=== PATIENT | male | born 1955 | race African-American/Black ===

== ENCOUNTER 2016-07-20 12:31 | Inpatient (IN) | payer OTHER ==
[2016-07-20 13:18] VITALS: BMI 33.2
--- NOTE | 2016-07-20 14:44 | HP ---
CIWA Score - CIWA Score Nausea/Vomitin Muscle Tremors: 3 Anxiety: 3 Agitation: 2 Paroxysmal Sweats: 2 Orientation: 0-Oriented Tacttile Disturbances: 2-Mild Itch/Numbness/Burn Auditory Disturbances: 2-Mild Harshness/Frighten Visual Disturbances: 2-Mild Sensitivity Headache: 2-Mild CIWA-Ar Total Score: 20 Admission ROS BHS - HPI Chief Complaint: i am here to stop drinking alcohol and cocaine Allergies/Adverse Reactions: Allergies Allergy/AdvReac Type Severity Reaction Status Date / Time No Known Allergies Allergy Verified 07/20/16 15:11 History of Present Illness: this 60 years old male with alcohol and cocaine dependence,withdrawal symptom, last detox 11/10/13 to 11/15/13 syncope nicotine dependence ptsd bipolar disorder htn gerd type 2 dm longest period of sobriety 3year - Ebola screening Have you traveled outside of the country in the last 21 days: No Have you had contact with anyone from an Ebola affected area: No Have you been sick,other than usual withdrawal symptoms: No Do you have a fever: No - Review of Systems Constitutional: Loss of Appetite, Malaise, Night Sweats, Changes in sleep, Weakness EENT: reports: Nose Congestion Respiratory: reports: No Symptoms reported Cardiac: reports: No Symptoms Reported GI: reports: Nausea, Vomiting, Abdominal cramping : reports: No Symptoms Reported Musculoskeletal: reports: Back Pain, Muscle Pain Integumentary: reports: Dryness Neuro: reports: Headache, Tremors Endocrine: reports: No Symptoms Reported Hematology: reports: No Symptoms Reported Psychiatric: reports: other (bipolar disorder,ptsd) Patient History - Patient Medical History Hx Anemia: No Hx Asthma: No Hx Chronic Obstructive Pulmonary Disease (COPD): No Hx Cancer: No Hx Cardiac Disorders: No Hx Congestive Heart Failure: No Hx Hypertension: Yes (Pt is non compliant with meds.) Hx Hypercholesterolemia: Yes (not taking meds) Hx Pacemaker: No HX Cerebrovascular Accident: Yes (experienced back in 2009) Hx Seizures: No Hx Dementia: No Hx Diabetes: Yes (Type II non complaint with meds.) Hx Gastrointestinal Disorders: No Hx Liver Disease: No Hx Genitourinary Disorders: No Hx Sexually Transmitted Disorders: Yes (hx of gonnorhea at age 20 yrs) Hx Renal Disease (ESRD): No Hx Thyroid Disease: No Hx Human Immunodeficiency Virus (HIV): No (negative 01/25 last) Hx Hepatitis C: No Hx Depression: Yes (on meds) Hx Suicide Attempt: No Hx Bipolar Disorder: Yes (on meds) Hx Schizophrenia: No Other Medical History: ptsd,no suicidal,no homicidal - Patient Surgical History Past Surgical History: Yes Other Surgical History: R wrist tendon repair in 1979 Anesthesia Reaction: No - PPD History Previous Implant?: Yes Documented Results: Negative w/o proof Date: 11/12/13 PPD to be Administered?: Yes - Smoking Cessation Smoking history: Current every day smoker Have you smoked in the past 12 months: Yes Aproximately how many cigarettes per day: 10 Hx Chewing Tobacco Use: No Initiated information on smoking cessation: Yes 'Breaking Loose' booklet given: 07/20/16 - Substance & Tx. History Hx Alcohol Use: Yes Hx Substance Use: Yes Substance Use Type: Alcohol, Cocaine Hx Substance Use Treatment: Yes ([facility] 11/10/13 to 11/15/13) - Substances Abused Alcohol Route: Oral Frequency: Daily Amount used: 1/2 pint of vodka/2 of 6packs 24 ozs of beer Age of first use: 18 Date of Last Use: 07/19/16 Cocaine Route: Smoking Frequency: Daily Amount used: 50$ Age of first use: 29 Date of Last Use: 07/19/16 Family Disease History - Family Disease History Family Disease History: Other: Father (,alcohol), Mother (alcohol, ) Admission Physical Exam [facility] - Vital Signs Vital Signs: Vital Signs - 24 hr 07/20/16 13:16 Temperature 96.7 F L Pulse Rate 78 Respiratory 18 Rate Blood Pressure 118/68 - Physical General Appearance: Yes: Tremorous, Irritable, Anxious HEENTM: Yes: Nasal Congestion Respiratory: Yes: Lungs Clear Neck: Yes: Within Normal Limits Breast: Yes: Within Normal Limits Cardiology: Yes: Within Normal Limits, Regular Rhythm, Regular Rate, S1, S2 Abdominal: Yes: Normal Bowel Sounds, Non Tender, Flat, Soft, Organomegaly Genitourinary: Yes: Within Normal Limits Back: Yes: Muscle Spasm Musculoskeletal: Yes: Back pain, Muscle Pain Extremities: Yes: Tremors Neurological: Yes: Within Normal Limits, black puller II-XII NML intact, Fully Oriented, Alert, Other (slurred speed,right hemiparesis old cva) Integumentary: Yes: Dry Lymphatic: Yes: Within Normal Limits - Diagnostic (1) Cocaine dependence Current Visit: No Status: Acute (2) Nicotine dependence Current Visit: No Status: Acute (3) Alcohol dependence with uncomplicated withdrawal Current Visit: Yes Status: Acute (4) CVA, old, dysarthria Current Visit: Yes Status: Acute (5) HTN (hypertension) Current Visit: Yes Status: Acute (6) GERD (gastroesophageal reflux disease) Current Visit: Yes Status: Acute (7) DM2 (diabetes mellitus, type 2) Current Visit: Yes Status: Acute (8) Bipolar disorder Current Visit: Yes Status: Acute Cleared for Admission S - Detox or Rehab S Level of Care: Medically Managed Detox Regimen/Protocol: Librium S Breath Alcohol Content Breath Alcohol Content: 0 Urine Drug Screen - Results Drug Screen Negative: No Urine Drug Screen Results: LEONOR-Cocaine, TCA-Tricyclic Antidepress
[2016-07-20] MEDS ORDERED: MAG HYDROX/AL HYDROX/SIMETH 30 ML UNIT-DOSE CUP PO PRN (15:16)
[2016-07-20] MEDS ORDERED: IBUPROFEN 400 MG TABLET (FP) PO PRN (15:16)
[2016-07-20] MEDS ORDERED: LOPERAMIDE HCL 2 MG CAPSULE PO PRN (15:16)
[2016-07-20] MEDS ORDERED: guaiFENesin/D-METHORPHAN HB 10 ML UNIT-DOSE CUPS PO PRN (15:16)
[2016-07-20] MEDS ORDERED: chlordiazePOXIDE HCL 25 MG CAPSULE PO PRN (15:16)
[2016-07-20] MEDS ORDERED: MAGNESIUM HYDROX 2400MG/30ML ORAL SUSPENSION 30 ML CUP PO PRN (15:16)
[2016-07-20] MEDS ORDERED: MENTHOL/PHENOL 1 EACH UD MM PRN (15:16)
[2016-07-20] MEDS ORDERED: hydrOXYzine PAMOATE 25 MG CAPSULE (FP) PO PRN (15:16)
[2016-07-20] MEDS ORDERED: ACETAMINOPHEN 325 MG TABLET (FP) PO PRN (15:16)
[2016-07-20] MEDS ORDERED: MAGNESIUM CITRATE 300 ML BOTTLE PO PRN (15:16)
[2016-07-20] MEDS ORDERED: P-EPHED 60MG/TRIPROLIDI 2.5MG TABLET PO PRN (15:16)
[2016-07-20] MEDS ORDERED: chlordiazePOXIDE HCL 25 MG CAPSULE PO ONE (16:15)
[2016-07-20] MEDS: chlordiazePOXIDE HCL 25 MG CAPSULE PO SCH ×2 (19:13→22:58)
[2016-07-20 19:14] LABS: URINE APPEARANCE CLEAR; URINE BILIRUBIN NEGATIVE (NEGATIVE); URINE BLOOD NEGATIVE (NEGATIVE); URINE COLOR YELLOW; URINE GLUCOSE (UA) NEGATIVE (NEGATIVE); URINE KETONE TRACE (NEGATIVE); URINE LEUK ESTERASE NEGATIVE (NEGATIVE); URINE NITRITE NEGATIVE (NEGATIVE); URINE PROTEIN NEGATIVE (NEGATIVE); URINE UROBILINOGEN NEGATIVE E.U./dl (0.2-1.0)
[2016-07-20] MEDS: NICOTINE 7 MG/24 HOURS TOPICAL PATCH TD SCH (19:14)
[2016-07-20] MEDS: metFORMIN HCL 500 MG TABLET (FP) PO SCH (22:58)
[2016-07-20] MEDS: THIAMINE HCL 100 MG TABLET (FP) PO SCH (22:58)
[2016-07-20] MEDS: METOPROLOL TARTRATE 25 MG TABLET (FP) PO SCH (22:58)
[2016-07-20] MEDS: DOCUSATE SODIUM 100 MG CAPSULE (FP) PO SCH (22:58)
[2016-07-20] MEDS: diphenhydrAMINE HCL 50 MG CAPSULE PO PRN (22:59)
[2016-07-21] MEDS: chlordiazePOXIDE HCL 25 MG CAPSULE PO SCH ×4 (06:03→22:37)
[2016-07-21] MEDS: metFORMIN HCL 500 MG TABLET (FP) PO SCH (07:41)
[2016-07-21] MEDS: PRENATAL VITAMINS W/ FOLIC ACID TABLET (FP) PO SCH (10:04)
[2016-07-21] MEDS: PANTOPRAZOLE 20 MG TABLET (FP) PO SCH (10:04)
[2016-07-21] MEDS: ASPIRIN 81 MG CHEWABLE TABLETS PO SCH (10:04)
[2016-07-21] MEDS: METOPROLOL TARTRATE 25 MG TABLET (FP) PO SCH (10:05)
[2016-07-21] MEDS: NICOTINE 7 MG/24 HOURS TOPICAL PATCH TD SCH (10:06)
[2016-07-21 10:23] LABS: MCH 32.3 pg (25.7-33.7); MCHC 33.3 g/dl (32.0-35.9); MEAN PLT VOLUME 10.9 fl (7.5-11.1); PLATELET COUNT 120 K/MM3 (134-434); RDW 12.8 % (11.9-15.9); WHITE BLOOD COUNT 4.8 K/mm3 (4.0-10.0)
[2016-07-21 10:46] LABS: ALBUMIN 3.4 g/dl (3.4-5.0)
[2016-07-21 10:49] LABS: BILIRUBIN,TOTAL 0.5 mg/dL (0.2-1.0); CALCIUM 8.7 mg/dL (8.5-10.1); CREATININE 1.8 mg/dL (0.7-1.3); TOT PROT 6.5 g/dl (6.4-8.2)
[2016-07-21 11:47] LABS: HIV 1 & 2 AB NEGATIVE; HIV 1 AGp24 NEGATIVE
--- NOTE | 2016-07-21 14:27 | PN ---
S CIWA - CIWA Score Nausea/Vomitin-No Nausea/No Vomiting Muscle Tremors: 3 Anxiety: 4-Mod. Anxious/Guarded Agitation: 4-Moderately Restless Paroxysmal Sweats: No Perspiration Orientation: 0-Oriented Tacttile Disturbances: 1-Very Mild Itch/Numbness Auditory Disturbances: 0-None Visual Disturbances: 0-None Headache: 3-Moderate CIWA-Ar Total Score: 15 BHS Progress Note (SOAP) Subjective: Sweating, anxiety, nausea Objective: 07/21/16 14:22 Last Vital Signs Temp Pulse Resp BP Pulse Ox 97 F L 78 18 96/71 07/21/16 13:30 07/21/16 13:30 07/21/16 13:30 07/21/16 13:30 Noted with hypotension Laboratory Tests 07/20/16 07/20/16 07/21/16 15:51 Unknown 06:02 WBC RBC Hgb Hct MCV MCHC RDW Plt Count MPV Sodium Potassium Chloride Carbon Dioxide Anion Gap BUN Creatinine Creat Clearance w eGFR POC Glucometer 94 151 Random Glucose Calcium Total Bilirubin AST ALT Alkaline Phosphatase Total Protein Albumin Urine Color Yellow Urine Appearance Clear Urine pH 5.0 Ur Specific [place] 1.023 Urine Protein Negative Urine Glucose (UA) Negative Urine Ketones Trace H Urine Blood Negative Urine Nitrite Negative Urine Bilirubin Negative Urine Urobilinogen Negative Ur Leukocyte Esterase Negative RPR Titer HIV 1&2 Antibody Screen HIV P24 Antigen 07/21/16 07/21/16 07/21/16 08:00 08:00 08:00 WBC 4.8 D RBC 3.85 L Hgb 12.4 D Hct 37.3 MCV 97.0 H MCHC 33.3 RDW 12.8 Plt Count 120 L D MPV 10.9 Sodium 135 L Potassium 3.8 Chloride 104 Carbon Dioxide 27 Anion Gap 4 L BUN 28 H D Creatinine 1.8 H D Creat Clearance w eGFR 38.95 POC Glucometer Random Glucose 104 D Calcium 8.7 Total Bilirubin 0.5 D AST 58 H ALT 29 D Alkaline Phosphatase 64 D Total Protein 6.5 Albumin 3.4 D Urine Color Urine Appearance Urine pH Ur Specific [place] Urine Protein Urine Glucose (UA) Urine Ketones Urine Blood Urine Nitrite Urine Bilirubin Urine Urobilinogen Ur Leukocyte Esterase RPR Titer Nonreactive HIV 1&2 Antibody Screen HIV P24 Antigen 07/21/16 08:40 WBC RBC Hgb Hct MCV MCHC RDW Plt Count MPV Sodium Potassium Chloride Carbon Dioxide Anion Gap BUN Creatinine Creat Clearance w eGFR POC Glucometer Random Glucose Calcium Total Bilirubin AST ALT Alkaline Phosphatase Total Protein Albumin Urine Color Urine Appearance Urine pH Ur Specific [place] Urine Protein Urine Glucose (UA) Urine Ketones Urine Blood Urine Nitrite Urine Bilirubin Urine Urobilinogen Ur Leukocyte Esterase RPR Titer HIV 1&2 Antibody Screen Negative HIV P24 Antigen Negative Labs noted: BUN 28, serum creatinine 1.8, serum glucose 104 Assessment: 07/21/16 14:23 Withdrawal symptoms Noted with hypotension Noted with prerenal azotemia Noted with hyperglycemia secondary to DMT2 Plan: Continue detox Hypotension: asymptomatic, encouraged to drink more water, d/c metoprolol due to continuous low blood pressure (no need to taper as patient only received two doses) Pre renal azotemia: encouraged to drink more water, repeat BMP in AM, d/c metformin and motrin due to elevated creatinine Hyperglycemia secondary to DMT2: ordered for HbA1c, change diet to diabetic diet , start sliding scale insulin novolog with coverage, d/c metformin due to elevated serum creatinine, encouraged to drink more water; consider resume metformin if warranted when renal function stable
[2016-07-21] MEDS: INSULIN SLIDING SCALE (NOVOLOG) 1 VIAL SQ SCH (17:51)
[2016-07-21] MEDS: THIAMINE HCL 100 MG TABLET (FP) PO SCH (22:37)
[2016-07-21] MEDS: DOCUSATE SODIUM 100 MG CAPSULE (FP) PO SCH (22:37)
[2016-07-21] MEDS: diphenhydrAMINE HCL 50 MG CAPSULE PO PRN (22:38)
[2016-07-22] MEDS: chlordiazePOXIDE HCL 25 MG CAPSULE PO SCH ×2 (05:53→10:26)
[2016-07-22] MEDS: INSULIN SLIDING SCALE (NOVOLOG) 1 VIAL SQ SCH ×3 (06:13→16:32)
[2016-07-22] MEDS: ASPIRIN 81 MG CHEWABLE TABLETS PO SCH (10:26)
[2016-07-22] MEDS: NICOTINE 7 MG/24 HOURS TOPICAL PATCH TD SCH (10:26)
[2016-07-22] MEDS: PANTOPRAZOLE 20 MG TABLET (FP) PO SCH (10:26)
[2016-07-22] MEDS: PRENATAL VITAMINS W/ FOLIC ACID TABLET (FP) PO SCH (10:26)
[2016-07-22 10:28] LABS: CALCIUM 8.2 mg/dL (8.5-10.1); CREATININE 1.4 mg/dL (0.7-1.3)
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
[2016-07-22] MEDS ORDERED: HALOPERIDOL 5 MG TABLET (FP) PO SCH (11:45)
--- NOTE | 2016-07-22 11:56 | PN ---
[facility] CIWA - CIWA Score Nausea/Vomitin Muscle Tremors: 3 Anxiety: 3 Agitation: 2 Paroxysmal Sweats: 1-Minimal Palms Moist Orientation: 0-Oriented Tacttile Disturbances: 1-Very Mild Itch/Numbness Auditory Disturbances: 1-Very Mild Visual Disturbances: 1-Very Mild Sensitivity Headache: 2-Mild CIWA-Ar Total Score: 17 S Progress Note (SOAP) Subjective: Alert,irritable,anxious,interrupted sleep,tremor Objective: 07/22/16 11:53 Vital Signs Temperature 96.4 F L 07/22/16 10:02 Pulse Rate 97 H 07/22/16 10:02 Respiratory Rate 18 07/22/16 10:02 Blood Pressure 118/76 07/22/16 10:02 O2 Sat by Pulse Oximetry (%) ekg nsr 75/min Laboratory Last Values WBC 4.8 K/mm3 (4.0-10.0) D 07/21/16 08:00 RBC 3.85 M/mm3 (4.00-5.60) L 07/21/16 08:00 Hgb 12.4 GM/dL (11.7-16.9) D 07/21/16 08:00 Hct 37.3 % (35.4-49) 07/21/16 08:00 MCV 97.0 fl (80-96) H 07/21/16 08:00 MCHC 33.3 g/dl (32.0-35.9) 07/21/16 08:00 RDW 12.8 % (11.9-15.9) 07/21/16 08:00 Plt Count 120 K/MM3 (134-434) L D 07/21/16 08:00 MPV 10.9 fl (7.5-11.1) 07/21/16 08:00 Sodium 140 mmol/L (136-145) 07/22/16 06:30 Potassium 4.0 mmol/L (3.5-5.1) 07/22/16 06:30 Chloride 104 mmol/L (98-107) 07/22/16 06:30 Carbon Dioxide 28 mmol/L (21-32) 07/22/16 06:30 Anion Gap 8 (8-16) 07/22/16 06:30 BUN 23 mg/dL (7-18) H 07/22/16 06:30 Creatinine 1.4 mg/dL (0.7-1.3) H D 07/22/16 06:30 Creat Clearance w eGFR 38.95 (>60) 07/21/16 08:00 POC Glucometer 102 UNITS (()) 07/22/16 11:16 Random Glucose 122 mg/dL (74-106) H 07/22/16 06:30 Hemoglobin A1c % 5.4 % (4.8-6.0) 07/22/16 06:30 Calcium 8.2 mg/dL (8.5-10.1) L 07/22/16 06:30 Total Bilirubin 0.5 mg/dL (0.2-1.0) D 07/21/16 08:00 AST 58 U/L (15-37) H 07/21/16 08:00 ALT 29 U/L (12-78) D 07/21/16 08:00 Alkaline Phosphatase 64 U/L (45-117) D 07/21/16 08:00 Total Protein 6.5 g/dl (6.4-8.2) 07/21/16 08:00 Albumin 3.4 g/dl (3.4-5.0) D 07/21/16 08:00 Urine Color Yellow 07/20/16 Unknown Urine Appearance Clear 07/20/16 Unknown Urine pH 5.0 (5.0-8.0) 07/20/16 Unknown Ur Specific [place] 1.023 (1.001-1.035) 07/20/16 Unknown Urine Protein Negative (NEGATIVE) 07/20/16 Unknown Urine Glucose (UA) Negative (NEGATIVE) 07/20/16 Unknown Urine Ketones Trace (NEGATIVE) H 07/20/16 Unknown Urine Blood Negative (NEGATIVE) 07/20/16 Unknown Urine Nitrite Negative (NEGATIVE) 07/20/16 Unknown Urine Bilirubin Negative (NEGATIVE) 07/20/16 Unknown Urine Urobilinogen Negative E.U./dl (0.2-1.0) 07/20/16 Unknown Ur Leukocyte Esterase Negative (NEGATIVE) 07/20/16 Unknown RPR Titer Nonreactive (NONREACTIVE) 07/21/16 08:00 HIV 1&2 Antibody Screen Negative 07/21/16 08:40 HIV P24 Antigen Negative 07/21/16 08:40 Assessment: 07/22/16 11:55 withdrawal symptom Plan: continue detox,encourage oral fluid,repeat cmp in am
[2016-07-22] MEDS: DIVALPROEX SODIUM 500 MG TABLET E.C. PO SCH ×2 (12:19→22:03)
[2016-07-22] MEDS: BENZTROPINE MESYLATE 1 MG TABLET (FP) PO SCH ×2 (12:19→22:03)
[2016-07-22] MEDS: chlordiazePOXIDE 5 MG CAPSULE PO SCH ×2 (17:13→22:03)
[2016-07-22] MEDS: DOCUSATE SODIUM 100 MG CAPSULE (FP) PO SCH (22:03)
[2016-07-22] MEDS: QUEtiapine FUMARATE 50 MG TABLET PO SCH (22:03)
[2016-07-22] MEDS: THIAMINE HCL 100 MG TABLET (FP) PO SCH (22:04)
[2016-07-23] MEDS: chlordiazePOXIDE 5 MG CAPSULE PO SCH ×2 (06:07→10:41)
[2016-07-23] MEDS: INSULIN SLIDING SCALE (NOVOLOG) 1 VIAL SQ SCH ×3 (06:29→16:42)
[2016-07-23] MEDS ORDERED: HALOPERIDOL 5 MG TABLET (FP) PO SCH (10:00)
--- NOTE | 2016-07-23 10:34 | PN ---
S Progress Note (SOAP) Subjective: ALERT,IRRITABLE,ANXIOUS,INTERRUPTED SLEEP,NASAL CONGESTION Objective: 07/23/16 10:33 Vital Signs Temperature 97.0 F L 07/23/16 09:39 Pulse Rate 111 H 07/23/16 09:39 Respiratory Rate 20 07/23/16 09:39 Blood Pressure 138/89 07/23/16 09:39 O2 Sat by Pulse Oximetry (%) Assessment: 07/23/16 10:33 WITHDRAWAL SYMPTOM Plan: CONTINUE DETOX,DISCHARGE IN AM
[2016-07-23] MEDS: NICOTINE 7 MG/24 HOURS TOPICAL PATCH TD SCH (10:41)
[2016-07-23] MEDS: BENZTROPINE MESYLATE 1 MG TABLET (FP) PO SCH ×2 (10:41→22:06)
[2016-07-23] MEDS: PRENATAL VITAMINS W/ FOLIC ACID TABLET (FP) PO SCH (10:41)
[2016-07-23] MEDS: PANTOPRAZOLE 20 MG TABLET (FP) PO SCH (10:41)
[2016-07-23] MEDS: ASPIRIN 81 MG CHEWABLE TABLETS PO SCH (10:41)
[2016-07-23] MEDS: DIVALPROEX SODIUM 500 MG TABLET E.C. PO SCH ×2 (10:41→22:06)
[2016-07-23 10:46] LABS: ALBUMIN 3.4 g/dl (3.4-5.0); BILIRUBIN,TOTAL 0.3 mg/dL (0.2-1.0); CALCIUM 8.4 mg/dL (8.5-10.1); CREATININE 1.5 mg/dL (0.7-1.3); TOT PROT 6.4 g/dl (6.4-8.2)
[2016-07-23] MEDS: SODIUM CHLORIDE NASAL SPRAY 44 ML BOTTLE NS SCH ×2 (11:56→22:06)
[2016-07-23] MEDS: chlordiazePOXIDE HCL 10 MG CAPSULE PO SCH ×2 (17:51→22:06)
[2016-07-23] MEDS: QUEtiapine FUMARATE 50 MG TABLET PO SCH (22:06)
[2016-07-23] MEDS: DOCUSATE SODIUM 100 MG CAPSULE (FP) PO SCH (22:06)
[2016-07-23] MEDS: THIAMINE HCL 100 MG TABLET (FP) PO SCH (22:07)
[2016-07-24] MEDS: chlordiazePOXIDE HCL 10 MG CAPSULE PO SCH (05:53)
[2016-07-24 06:31] VITALS: BP 126/66; PULSE 105; TEMP 98.6
[2016-07-24] MEDS: INSULIN SLIDING SCALE (NOVOLOG) 1 VIAL SQ SCH (06:39)
--- NOTE | 2016-07-24 08:26 | PN ---
S Progress Note (SOAP) Subjective: ALERT,NO COMPLAINT Objective: 07/24/16 08:24 Vital Signs Temperature 98.6 F 07/24/16 06:30 Pulse Rate 105 H 07/24/16 06:30 Respiratory Rate 16 07/24/16 06:30 Blood Pressure 126/66 07/24/16 06:30 O2 Sat by Pulse Oximetry (%) DETOX COMPLETED,NO WITHDRAWAL SYMPTOM Assessment: 07/24/16 08:25 NO WITHDRAWAL SYMPTOM Plan: DISCHARGE TODAY,FOLLOW UP WITH AFTER CARE PROGRAM ARRANGEMENT
--- NOTE | 2016-07-24 08:30 | DS ---
[facility] Detox Discharge Summary Admission Date: 07/20/16 Discharge Date: 07/24/16 - History Present History: Alcohol Dependence, Cocaine Dependence Additional Comments: FOLLOW UP WITH AFTER CARE PROGRAM ARRANGEMENT AND PMD FOR MEDICAL PROBLEMS PATIENT HAS ALL MEDICATIONS AT HOME Pertinent Past History: OLD CVA HYPERTENSION GERD TYPE 2 DM BIPOLAR DISORDER - Physical Exam Results Vital Signs: Vital Signs Temperature 98.6 F 07/24/16 06:30 Pulse Rate 105 H 07/24/16 06:30 Respiratory Rate 16 07/24/16 06:30 Blood Pressure 126/66 07/24/16 06:30 O2 Sat by Pulse Oximetry (%) Pertinent Admission Physical Exam Findings: WITHDRAWAL SYMPTOM - Treatment Hospital Course: Detox Protocol Followed, Detoxed Safely, Responded well, Discharged Condition Good Patient has Accepted a Rehab Referral to: [facility] - Medication Discharge Medications: Ambulatory Orders Aspirin [ASA -] 81 mg PO DAILY #30 tab.chew 11/15/13 Metformin HCl [Glucophage -] 500 mg PO BID #60 tablet 11/15/13 Benztropine Mesylate [Cogentin -] 1 mg PO BID 07/20/16 Divalproex Sodium 500 mg PO BID 07/20/16 Docusate Sodium [Colace -] 100 mg PO HS 07/20/16 Folic Acid 1 mg PO DAILY 07/20/16 Haloperidol [Haldol -] 5 mg PO BID 07/20/16 Metoprolol Tartrate [Lopressor -] 25 mg PO BID 07/20/16 Multivit with Iron-Minerals [Compete] 1 each PO DAILY 07/20/16 Nicotine Patch [Nicoderm Patch -] 1 patch TD DAILY 07/20/16 Pantoprazole Sodium [Protonix -] 20 mg PO DAILY 07/20/16 Quetiapine Fumarate [Seroquel -] 50 mg PO BID 07/20/16 Thiamine HCl [Vitamin B-1] 100 mg PO DAILY 07/20/16 Benztropine Mesylate [Cogentin -] 1 mg PO DAILY #30 tab 07/23/16 Divalproex [Depakote -] 500 mg PO BID #60 tablet.ec 07/23/16 Haloperidol [Haldol -] 5 mg PO DAILY #30 tablet 07/23/16 Quetiapine Fumarate [Seroquel -] 50 mg PO HS #30 tablet 07/23/16 - Diagnosis (1) Cocaine dependence Current Visit: Yes Status: Acute (2) Nicotine dependence Current Visit: No Status: Acute (3) Alcohol dependence with uncomplicated withdrawal Current Visit: Yes Status: Acute (4) CVA, old, dysarthria Current Visit: Yes Status: Acute (5) HTN (hypertension) Current Visit: Yes Status: Chronic (6) GERD (gastroesophageal reflux disease) Current Visit: Yes Status: Chronic (7) DM2 (diabetes mellitus, type 2) Current Visit: Yes Status: Chronic (8) Bipolar disorder Current Visit: Yes Status: Chronic - AMA Did Patient Leave Against Medical Advice: No
--- NOTE | 2016-07-24 10:27 | EKG ---
Test Reason : Blood Pressure : / mmHG Vent. Rate : 075 BPM Atrial Rate : 075 BPM P-R Int : 162 ms QRS Dur : 076 ms QT Int : 392 ms P-R-T Axes : 066 030 019 degrees QTc Int : 437 ms NORMAL SINUS RHYTHM NORMAL ECG NO PREVIOUS ECGS AVAILABLE Confirmed by KEVIN SANTA MD ([id number]) on 07/24/2016 10:26:42 AM Referred By: Confirmed By:KEVIN SANTA MD
== END 2016-07-24 08:55 | disposition home or self-care (01) | DRG 774 ==
LOC: YASAS 12:31 → Y3N 16:20
PROVIDERS: ADMIT Internal Medicine; ATTEND Internal Medicine
PROC: HZ2ZZZZ Detoxification Services for Substance Abuse Treatment (ICD-10-PCS; principal; 2016-07-20)
DX: F10.230 Alcohol dependence with withdrawal, uncomplicated (principal); F14.20 Cocaine dependence, uncomplicated; F17.210 Nicotine dependence, cigarettes, uncomplicated; F31.9 Bipolar disorder, unspecified; F19.24 Other psychoactive substance dependence with psychoactive substance-induced mood disorder; F43.10 Post-traumatic stress disorder, unspecified; I10 Essential (primary) hypertension; I95.9 Hypotension, unspecified; K21.9 Gastro-esophageal reflux disease without esophagitis; E11.65 Type 2 diabetes mellitus with hyperglycemia; E78.00 Pure hypercholesterolemia, unspecified; R79.89 Other specified abnormal findings of blood chemistry; G45.8 Other transient cerebral ischemic attacks and related syndromes; Z86.73 Personal history of transient ischemic attack (TIA), and cerebral infarction without residual deficits; Z87.438 Personal history of other diseases of male genital organs; Z86.79 Personal history of other diseases of the circulatory system; Z91.14 Patient's other noncompliance with medication regimen
CPT/HCPCS: 36415; 80048; 80053; 80164; 81003; 83036; 85027; 86593; 87389; 93005; 93010

== ENCOUNTER 2019-02-07 10:36 | Inpatient (IN) | payer OTHER ==
[2019-02-07 11:19] VITALS: BMI 27.9
--- NOTE | 2019-02-07 12:48 | HP ---
"CIWA Score Nausea/Vomitin Muscle Tremors: 4-Moderate,w/Arms Extend Anxiety: 4-Mod. Anxious/Guarded Agitation: 4-Moderately Restless Paroxysmal Sweats: 2 Orientation: 2-Disoriented Date<2 days Tacttile Disturbances: 1-Very Mild Itch/Numbness Auditory Disturbances: 1-Very Mild Visual Disturbances: 2-Mild Sensitivity Headache: 3-Moderate CIWA-Ar Total Score: 25 - Admission Criteria OASAS Guidelines: Admission for Medically Managed Detox: Requires at least one of the followin. CIWA greater than 12 2. Seizures within the past 24 hours 3. Delirium tremens within the past 24 hours 4. Hallucinations within the past 24 hours 5. Acute intervention needed for co occurring medical disorder 6. Acute intervention needed for co occurring psychiatric disorder 7. Severe withdrawal that cannot be handled at a lower level of care (continued vomiting, continued diarrhea, abnormal vital signs) requiring intravenous medication and/or fluids 8. Admission ROS S - HPI Allergies/Adverse Reactions: Allergies Allergy/AdvReac Type Severity Reaction Status Date / Time No Known Allergies Allergy Verified 02/07/19 11:06 History of Present Illness: pt here requesting detox from etoh use , reports 5 pints and 24-oz x 6-pk , 3 --4 /day , starts drinking in the mornings , + blackouts, + tremors , denies seizures , states he relapsed 1 month ago after the of his son , latest use this morning, current symptoms as above . cocaine : 80-90 $/day tobacco : 1/2 ppd benzo-denies pmhx : dm, htn , gerd , pshx : r wrist tendon repair age 20 PSych : ptsd This report was requested by: Alayna Owen | Reference #: [id number] Others' Prescriptions Patient Name: Ángel Moran Date: 1955 Address: [address] [place] [address] Sex: Male Rx Written Rx Dispensed Drug Quantity Days Supply Prescriber Name 08/19/2018 08/19/2018 chlordiazepoxide 10 mg capsule 20 2 LaksPorter MD 08/14/2018 08/14/2018 chlordiazepoxide 10 mg capsule 45 3 Laks, Porter GAN Exam Limitations: Clinical Condition - Ebola screening Have you traveled outside of the country in the last 21 days: No (N) Have you had contact with anyone from an Ebola affected area: No Do you have a fever: No - Review of Systems Constitutional: See HPI EENT: reports: No Symptoms Reported Respiratory: reports: No Symptoms reported Cardiac: reports: No Symptoms Reported GI: reports: See HPI : reports: No Symptoms Reported Musculoskeletal: reports: No Symptoms Reported Integumentary: reports: No Symptoms Reported Neuro: reports: See HPI Endocrine: reports: See HPI Psychiatric: reports: Orientated x3, Agitated, Anxious Patient History - Patient Medical History Hx Anemia: No Hx Asthma: No Hx Chronic Obstructive Pulmonary Disease (COPD): No Hx Cancer: No Hx Cardiac Disorders: No Hx Congestive Heart Failure: No Hx Hypertension: Yes (Pt is non compliant with meds.) Hx Hypercholesterolemia: Yes (not taking meds) Hx Pacemaker: No HX Cerebrovascular Accident: Yes (experienced back in 2009) Hx Seizures: No Hx Dementia: No Hx Diabetes: Yes (Type II non complaint with meds.) Hx Gastrointestinal Disorders: No Hx Liver Disease: No Hx Genitourinary Disorders: No Hx Sexually Transmitted Disorders: Yes (hx of gonnorhea at age 20 yrs) Hx Renal Disease (ESRD): No Hx Thyroid Disease: No Hx Human Immunodeficiency Virus (HIV): No (negative 01/25 last) Hx Hepatitis C: No Hx Depression: Yes (on meds) Hx Suicide Attempt: No Hx Bipolar Disorder: Yes (on meds) Hx Schizophrenia: No - Patient Surgical History Past Surgical History: Yes Other Surgical History: R wrist tendon repair in 1979 Anesthesia Reaction: No - PPD History Date: 07/22/16 - Smoking Cessation Smoking history: Current every day smoker Have you smoked in the past 12 months: Yes Aproximately how many cigarettes per day: 10 Hx Chewing Tobacco Use: No Initiated information on smoking cessation: No - Substances abused Alcohol Substance route: Oral Frequency: Daily Amount used: 4-5 pints of vodka, 24 ozs beer 2-6 packs. Age of first use: 21 Date of last use: 02/07/19 Cocaine Substance route: Smoking Frequency: Daily Amount used: $80 Age of first use: 29 Date of last use: 02/07/19 Family Disease History - Family Disease History Family Disease History: Other: Father (,alcohol), Mother (alcohol, ) Admission Physical Exam BHS - Vital Signs Vital Signs: Vital Signs - 24 hr 02/07/19 10:58 Temperature 97.2 F L Pulse Rate 92 H Respiratory 18 Rate Blood Pressure 139/83 - Physical General Appearance: Yes: Mild Distress, Tremorous, Anxious HEENTM: Yes: EOMI, Hearing grossly Normal, Normocephalic, Normal Voice Respiratory: Yes: Lungs Clear, Normal Breath Sounds, No Respiratory Distress, No Accessory Muscle Use Neck: Yes: No masses,lesions,Nodules, Trachea in good position Cardiology: Yes: Regular Rhythm, Regular Rate, S1, S2, Tachycardia Abdominal: Yes: Non Tender, Soft Back: Yes: Normal Inspection Musculoskeletal: Yes: Gait Steady Extremities: Yes: Normal Range of Motion, Non-Tender Neurological: Yes: Fully Oriented, Alert, Motor Strength 5/5 Integumentary: Yes: Warm - Diagnostic (1) Alcohol dependence Current Visit: Yes Status: Acute Qualifiers: Substance use status: uncomplicated Qualified Code(s): F10.20 - Alcohol dependence, uncomplicated (2) Cocaine dependence Current Visit: Yes Status: Chronic Qualifiers: Substance use status: uncomplicated Qualified Code(s): F14.20 - Cocaine dependence, uncomplicated (3) Nicotine dependence Current Visit: Yes Status: Chronic Qualifiers: Nicotine product type: cigarettes Breathalyzer - Breathalyzer Breathalyzer: 0.008 Urine Drug Screen - Test Device Lot number: [id number] Expiration date: 11/10/20 - Control Is test valid?: Yes - Results Drug screen NEGATIVE: No Urine drug screen results: LEONOR-Cocaine, BZO-Benzodiazepines Inpatient Rehab Admission - Rehab Decision to Admit Inpatient rehab admission?: No"
[2019-02-07] MEDS ORDERED: ACETAMINOPHEN 325 MG TABLET (FP) PO PRN ×2 (12:51)
[2019-02-07] MEDS ORDERED: MAGNESIUM CITRATE 300 ML BOTTLE PO PRN (12:51)
[2019-02-07] MEDS ORDERED: MENTHOL/PHENOL 1 EACH UD MM PRN (12:51)
[2019-02-07] MEDS ORDERED: IBUPROFEN 400 MG TABLET (FP) PO PRN (12:51)
[2019-02-07] MEDS ORDERED: MAG HYDROX/AL HYDROX/SIMETH 30 ML UNIT-DOSE CUP PO PRN (12:51)
[2019-02-07] MEDS ORDERED: hydrOXYzine PAMOATE 25 MG CAPSULE (FP) PO PRN (12:51)
[2019-02-07] MEDS ORDERED: NICOTINE POLACRILEX 2 MG GUM BUC PRN (12:51)
[2019-02-07] MEDS ORDERED: BISMUTH SUBSALICYLATE 524 MG/30 ML UD PO PRN (12:51)
[2019-02-07] MEDS ORDERED: MAGNESIUM HYDROX 2400MG/30ML ORAL SUSPENSION 30 ML CUP PO PRN (12:51)
[2019-02-07] MEDS ORDERED: chlordiazePOXIDE HCL 10 MG CAPSULE PO PRN (12:57)
[2019-02-07] MEDS: ASPIRIN 81 MG CHEWABLE TABLETS PO SCH (14:33)
[2019-02-07] MEDS: chlordiazePOXIDE HCL 25 MG CAPSULE PO SCH ×2 (14:33→22:14)
[2019-02-07] MEDS: metFORMIN HCL 500 MG TABLET (FP) PO SCH (17:07)
[2019-02-07] MEDS: INSULIN SLIDING SCALE (NOVOLOG) 1 VIAL SQ SCH (18:08)
[2019-02-07] MEDS: THIAMINE HCL 100 MG TABLET (FP) PO SCH (22:14)
[2019-02-07] MEDS: MELATONIN 5 MG TABLETS PO PRN (22:14)
[2019-02-07] MEDS: METOPROLOL TARTRATE 25 MG TABLET (FP) PO SCH (22:14)
[2019-02-08] MEDS: chlordiazePOXIDE HCL 25 MG CAPSULE PO SCH ×3 (06:05→22:04)
[2019-02-08] MEDS: metFORMIN HCL 500 MG TABLET (FP) PO SCH ×2 (06:05→17:17)
[2019-02-08] MEDS: INSULIN SLIDING SCALE (NOVOLOG) 1 VIAL SQ SCH ×2 (06:28→17:12)
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
[2019-02-08] MEDS: PRENATAL VITAMINS W/ FOLIC ACID TABLET (FP) PO SCH (10:11)
[2019-02-08] MEDS: ASPIRIN 81 MG CHEWABLE TABLETS PO SCH (10:11)
[2019-02-08] MEDS: PANTOPRAZOLE 20 MG TABLET (FP) PO SCH (10:11)
[2019-02-08] MEDS ORDERED: NICOTINE POLACRILEX 4 MG GUM BUC PRN (10:35)
[2019-02-08 12:18] LABS: HEMATOCRIT 37.9 % (35.4-49); HEMOGLOBIN 12.7 GM/dL (11.7-16.9); MCHC 33.6 g/dl (32.0-35.9); MEAN CELL VOLUME 98.1 fl (80-96); MEAN PLT VOLUME 10.8 fl (7.5-11.1); PLATELET COUNT 121 K/MM3 (134-434); RBC 3.87 M/mm3 (4.00-5.60); RDW 13.4 % (11.9-15.9); WHITE BLOOD COUNT 5.5 K/mm3 (4.0-10.0)
[2019-02-08] MEDS: METOPROLOL TARTRATE 25 MG TABLET (FP) PO SCH ×2 (12:29→22:04)
[2019-02-08] MEDS: NICOTINE 21 MG/24 HOURS TOPICAL PATCH TD SCH (12:29)
[2019-02-08 13:06] LABS: ALBUMIN 3.3 g/dl (3.4-5.0); BLOOD UREA NITROGEN 24.3 mg/dL (7-18); CALCIUM 8.5 mg/dL (8.5-10.1); CREATININE 1.1 mg/dL (0.55-1.3); POTASSIUM 3.8 mmol/L (3.5-5.1); TOT PROT 6.4 g/dl (6.4-8.2)
[2019-02-08] MEDS ORDERED: PROCHLORPERAZINE MALEATE 5 MG TABLET PO PRN (16:47)
--- NOTE | 2019-02-08 16:51 | PN ---
S CIWA - CIWA Score Nausea/Vomitin Muscle Tremors: 4-Moderate,w/Arms Extend Anxiety: 2 Agitation: 0-Normal Activity Paroxysmal Sweats: No Perspiration Orientation: 0-Oriented Tacttile Disturbances: 0-None Auditory Disturbances: 1-Very Mild Visual Disturbances: 2-Mild Sensitivity Headache: 0-None Present CIWA-Ar Total Score: 12 BHS Progress Note (SOAP) Subjective: Nausea, Tremors, Diarrhea, Stomach Cramping. Objective: PATIENT A & O X 3, OBSERVED AMBULATING ON UNIT UNASSISTED. IN NO ACUTE DISTRESS. 02/08/19 16:49 Vital Signs Temperature 98.0 F 02/08/19 13:24 Pulse Rate 54 L 02/08/19 13:24 Respiratory Rate 18 02/08/19 13:24 Blood Pressure 118/72 02/08/19 13:24 O2 Sat by Pulse Oximetry (%) Laboratory Tests 02/07/19 02/07/19 02/08/19 13:25 16:45 06:07 WBC RBC Hgb Hct MCV MCH MCHC RDW Plt Count MPV Sodium Potassium Chloride Carbon Dioxide Anion Gap BUN Creatinine Est GFR (CKD-EPI)AfAm Est GFR (CKD-EPI)NonAf POC Glucometer 97 71 131 Random Glucose Calcium Total Bilirubin AST ALT Alkaline Phosphatase Total Protein Albumin RPR Titer HIV 1&2 Antibody Screen HIV P24 Antigen 02/08/19 02/08/19 02/08/19 07:00 07:00 07:00 WBC 5.5 RBC 3.87 L Hgb 12.7 Hct 37.9 MCV 98.1 H MCH 33.0 MCHC 33.6 RDW 13.4 Plt Count 121 L MPV 10.8 Sodium 140 Potassium 3.8 Chloride 104 Carbon Dioxide 28 Anion Gap 8 BUN 24.3 H Creatinine 1.1 Est GFR (CKD-EPI)AfAm 83.53 Est GFR (CKD-EPI)NonAf 72.07 POC Glucometer Random Glucose 112 H Calcium 8.5 Total Bilirubin 1.0 AST 27 ALT 65 H Alkaline Phosphatase 93 Total Protein 6.4 Albumin 3.3 L RPR Titer HIV 1&2 Antibody Screen Negative HIV P24 Antigen Negative 02/08/19 02/08/19 07:00 16:25 WBC RBC Hgb Hct MCV MCH MCHC RDW Plt Count MPV Sodium Potassium Chloride Carbon Dioxide Anion Gap BUN Creatinine Est GFR (CKD-EPI)AfAm Est GFR (CKD-EPI)NonAf POC Glucometer 113 Random Glucose Calcium Total Bilirubin AST ALT Alkaline Phosphatase Total Protein Albumin RPR Titer Nonreactive HIV 1&2 Antibody Screen HIV P24 Antigen LABS NOTED. Assessment: 02/08/19 16:49 WITHDRAWAL SYMPTOMS. THROMBOCYTOPENIA. Plan: CONTINUE DETOX. INCREASE DAILY PO WATER INTAKE. PRN COMPAZINE PO FOR NAUSEA. PRN PEPTO-BISMOL PO FOR DIARRHEA.
[2019-02-08] MEDS: HALOPERIDOL 5 MG TABLET (FP) PO SCH (22:03)
[2019-02-08] MEDS: THIAMINE HCL 100 MG TABLET (FP) PO SCH (22:03)
[2019-02-08] MEDS: BENZTROPINE MESYLATE 1 MG TABLET (FP) PO SCH (22:04)
[2019-02-08] MEDS: MELATONIN 5 MG TABLETS PO PRN (23:57)
[2019-02-09] MEDS: metFORMIN HCL 500 MG TABLET (FP) PO SCH ×2 (06:14→16:39)
[2019-02-09] MEDS: chlordiazePOXIDE 5 MG CAPSULE PO SCH ×3 (06:14→22:29)
[2019-02-09] MEDS: INSULIN SLIDING SCALE (NOVOLOG) 1 VIAL SQ SCH ×2 (07:31→16:38)
[2019-02-09] MEDS: ASPIRIN 81 MG CHEWABLE TABLETS PO SCH (10:00)
[2019-02-09] MEDS: PRENATAL VITAMINS W/ FOLIC ACID TABLET (FP) PO SCH (10:01)
[2019-02-09] MEDS: NICOTINE 21 MG/24 HOURS TOPICAL PATCH TD SCH (10:01)
[2019-02-09] MEDS: PANTOPRAZOLE 20 MG TABLET (FP) PO SCH (10:01)
[2019-02-09] MEDS: METOPROLOL TARTRATE 25 MG TABLET (FP) PO SCH ×2 (11:09→22:28)
--- NOTE | 2019-02-09 16:42 | PN ---
S CIWA - CIWA Score Nausea/Vomitin-No Nausea/No Vomiting Muscle Tremors: 3 Anxiety: 2 Agitation: 1-Slight > Activity Paroxysmal Sweats: No Perspiration Orientation: 0-Oriented Tacttile Disturbances: 1-Very Mild Itch/Numbness Auditory Disturbances: 0-None Visual Disturbances: 2-Mild Sensitivity Headache: 0-None Present CIWA-Ar Total Score: 9 BHS Progress Note (SOAP) Subjective: Tremors, Diarrhea, Stomach Cramping. Objective: PATIENT A & O X 3, OBSERVED AMBULATING ON UNIT UNASSISTED. IN NO ACUTE DISTRESS. 02/09/19 16:43 Vital Signs Temperature 98.2 F 02/09/19 13:01 Pulse Rate 56 L 02/09/19 13:01 Respiratory Rate 18 02/09/19 13:01 Blood Pressure 126/77 02/09/19 13:01 O2 Sat by Pulse Oximetry (%) Laboratory Tests 02/07/19 02/07/19 02/08/19 13:25 16:45 06:07 WBC RBC Hgb Hct MCV MCH MCHC RDW Plt Count MPV Sodium Potassium Chloride Carbon Dioxide Anion Gap BUN Creatinine Est GFR (CKD-EPI)AfAm Est GFR (CKD-EPI)NonAf POC Glucometer 97 71 131 Random Glucose Calcium Total Bilirubin AST ALT Alkaline Phosphatase Total Protein Albumin RPR Titer HIV 1&2 Antibody Screen HIV P24 Antigen 02/08/19 02/08/19 02/08/19 07:00 07:00 07:00 WBC 5.5 RBC 3.87 L Hgb 12.7 Hct 37.9 MCV 98.1 H MCH 33.0 MCHC 33.6 RDW 13.4 Plt Count 121 L MPV 10.8 Sodium 140 Potassium 3.8 Chloride 104 Carbon Dioxide 28 Anion Gap 8 BUN 24.3 H Creatinine 1.1 Est GFR (CKD-EPI)AfAm 83.53 Est GFR (CKD-EPI)NonAf 72.07 POC Glucometer Random Glucose 112 H Calcium 8.5 Total Bilirubin 1.0 AST 27 ALT 65 H Alkaline Phosphatase 93 Total Protein 6.4 Albumin 3.3 L RPR Titer HIV 1&2 Antibody Screen Negative HIV P24 Antigen Negative 02/08/19 02/08/19 02/09/19 07:00 16:25 07:02 WBC RBC Hgb Hct MCV MCH MCHC RDW Plt Count MPV Sodium Potassium Chloride Carbon Dioxide Anion Gap BUN Creatinine Est GFR (CKD-EPI)AfAm Est GFR (CKD-EPI)NonAf POC Glucometer 113 126 Random Glucose Calcium Total Bilirubin AST ALT Alkaline Phosphatase Total Protein Albumin RPR Titer Nonreactive HIV 1&2 Antibody Screen HIV P24 Antigen 02/09/19 16:37 WBC RBC Hgb Hct MCV MCH MCHC RDW Plt Count MPV Sodium Potassium Chloride Carbon Dioxide Anion Gap BUN Creatinine Est GFR (CKD-EPI)AfAm Est GFR (CKD-EPI)NonAf POC Glucometer 125 Random Glucose Calcium Total Bilirubin AST ALT Alkaline Phosphatase Total Protein Albumin RPR Titer HIV 1&2 Antibody Screen HIV P24 Antigen LABS NOTED. Assessment: 02/09/19 16:44 WITHDRAWAL SYMPTOMS. THROMBOCYTOPENIA. Plan: CONTINUE DETOX. INCREASE DAILY PO WATER INTAKE.
[2019-02-09] MEDS: THIAMINE HCL 100 MG TABLET (FP) PO SCH (22:28)
[2019-02-09] MEDS: BENZTROPINE MESYLATE 1 MG TABLET (FP) PO SCH (22:28)
[2019-02-09] MEDS: HALOPERIDOL 5 MG TABLET (FP) PO SCH (22:28)
[2019-02-09] MEDS: MELATONIN 5 MG TABLETS PO PRN (22:28)
[2019-02-10] MEDS ORDERED: chlordiazePOXIDE HCL 10 MG CAPSULE PO PRN
[2019-02-10] MEDS ORDERED: chlordiazePOXIDE HCL 10 MG CAPSULE PO SCH (05:00)
[2019-02-10] MEDS: metFORMIN HCL 500 MG TABLET (FP) PO SCH (06:07)
[2019-02-10] MEDS: INSULIN SLIDING SCALE (NOVOLOG) 1 VIAL SQ SCH (06:14)
[2019-02-10 09:22] VITALS: BP 127/76; PULSE 69; TEMP 96.6
[2019-02-10] MEDS: PANTOPRAZOLE 20 MG TABLET (FP) PO SCH (10:05)
[2019-02-10] MEDS: ASPIRIN 81 MG CHEWABLE TABLETS PO SCH (10:05)
[2019-02-10] MEDS: METOPROLOL TARTRATE 25 MG TABLET (FP) PO SCH (10:05)
[2019-02-10] MEDS: PRENATAL VITAMINS W/ FOLIC ACID TABLET (FP) PO SCH (10:05)
[2019-02-10] MEDS: NICOTINE 21 MG/24 HOURS TOPICAL PATCH TD SCH (10:07)
--- NOTE | 2019-02-10 10:55 | DS ---
[facility] Detox Discharge Summary Admission Date: 02/07/19 Discharge Date: 02/10/19 - History Present History: Alcohol Dependence Additional Comments: 63 years old male admitted on 02/07/19 for acute alcohol withdrawal sx management doing well with librium detox regimen no complication throughout the detox stay alert no dizziness no shortness of breath oriented x 3 aftercare [facility] inpatient with transportation arranged - Physical Exam Results Vital Signs: Vital Signs Temperature 96.6 F L 02/10/19 09:21 Pulse Rate 69 02/10/19 09:21 Respiratory Rate 18 02/10/19 09:21 Blood Pressure 127/76 02/10/19 09:21 O2 Sat by Pulse Oximetry (%) Pertinent Admission Physical Exam Findings: alcohol withdrawal sx Laboratory Last Values WBC 5.5 K/mm3 (4.0-10.0) 02/08/19 07:00 RBC 3.87 M/mm3 (4.00-5.60) L 02/08/19 07:00 Hgb 12.7 GM/dL (11.7-16.9) 02/08/19 07:00 Hct 37.9 % (35.4-49) 02/08/19 07:00 MCV 98.1 fl (80-96) H 02/08/19 07:00 MCH 33.0 pg (25.7-33.7) 02/08/19 07:00 MCHC 33.6 g/dl (32.0-35.9) 02/08/19 07:00 RDW 13.4 % (11.9-15.9) 02/08/19 07:00 Plt Count 121 K/MM3 (134-434) L 02/08/19 07:00 MPV 10.8 fl (7.5-11.1) 02/08/19 07:00 Sodium 140 mmol/L (136-145) 02/08/19 07:00 Potassium 3.8 mmol/L (3.5-5.1) 02/08/19 07:00 Chloride 104 mmol/L (98-107) 02/08/19 07:00 Carbon Dioxide 28 mmol/L (21-32) 02/08/19 07:00 Anion Gap 8 MMOL/L (8-16) 02/08/19 07:00 BUN 24.3 mg/dL (7-18) H 02/08/19 07:00 Creatinine 1.1 mg/dL (0.55-1.3) 02/08/19 07:00 Est GFR (CKD-EPI)AfAm 83.53 02/08/19 07:00 Est GFR (CKD-EPI)NonAf 72.07 02/08/19 07:00 POC Glucometer 113 UNITS (80-120) 02/10/19 06:06 Random Glucose 112 mg/dL (74-106) H 02/08/19 07:00 Calcium 8.5 mg/dL (8.5-10.1) 02/08/19 07:00 Total Bilirubin 1.0 mg/dL (0.2-1) 02/08/19 07:00 AST 27 U/L (15-37) 02/08/19 07:00 ALT 65 U/L (13-61) H 02/08/19 07:00 Alkaline Phosphatase 93 U/L (45-117) 02/08/19 07:00 Total Protein 6.4 g/dl (6.4-8.2) 02/08/19 07:00 Albumin 3.3 g/dl (3.4-5.0) L 02/08/19 07:00 RPR Titer Nonreactive (NONREACTIVE) 02/08/19 07:00 HIV 1&2 Antibody Screen Negative 02/08/19 07:00 HIV P24 Antigen Negative 02/08/19 07:00 lab noted - Treatment Hospital Course: Detox Protocol Followed, Detoxed Safely, Responded well, Discharged Condition Good, Rehab Referral Accepted Patient has Accepted a Rehab Referral to: [facility] - Medication Discharge Medications: Ambulatory Orders Aspirin [ASA -] 81 mg PO DAILY #30 tab.chew 11/15/13 metFORMIN HCL [Glucophage -] 500 mg PO BID #60 tablet 11/15/13 Benztropine Mesylate [Cogentin -] 1 mg PO BID 07/20/16 Divalproex Sodium 500 mg PO BID 07/20/16 Docusate Sodium [Colace -] 100 mg PO HS 07/20/16 Folic Acid 1 mg PO DAILY 07/20/16 Haloperidol [Haldol -] 5 mg PO BID 07/20/16 Metoprolol Tartrate [Lopressor -] 25 mg PO BID 07/20/16 Multivit with Iron,Minerals [Compete] 1 each PO DAILY 07/20/16 Nicotine Patch [Nicoderm Patch -] 1 patch TD DAILY 07/20/16 Pantoprazole Sodium [Protonix -] 20 mg PO DAILY 07/20/16 Quetiapine Fumarate [Seroquel -] 50 mg PO BID 07/20/16 Thiamine HCl [Vitamin B-1] 100 mg PO DAILY 07/20/16 Benztropine Mesylate [Cogentin -] 1 mg PO DAILY #30 tab 07/23/16 Divalproex [Depakote -] 500 mg PO BID #60 tablet.ec 07/23/16 Haloperidol [Haldol -] 5 mg PO DAILY #30 tablet 07/23/16 Quetiapine Fumarate [Seroquel -] 50 mg PO HS #30 tablet 07/23/16 - Diagnosis (1) Alcohol dependence with uncomplicated withdrawal Status: Acute (2) DM2 (diabetes mellitus, type 2) Status: Chronic Qualifiers: Diabetes mellitus supervisor intermediates insulin use: without supervisor intermediates use Diabetes mellitus complication detail: with other oral complications (3) GERD (gastroesophageal reflux disease) Status: Chronic Qualifiers: Esophagitis presence: without esophagitis Qualified Code(s): K21.9 - Gastro -esophageal reflux disease without esophagitis (4) HTN (hypertension) Status: Chronic Qualifiers: Hypertension type: unspecified Qualified Code(s): I10 - Essential (primary ) hypertension (5) Nicotine dependence Status: Acute Qualifiers: Nicotine product type: cigarettes Substance use status: in withdrawal Qualified Code(s): F17.213 - Nicotine dependence, cigarettes, with withdrawal - AMA Did Patient Leave Against Medical Advice: No
[2019-02-11] MEDS ORDERED: chlordiazePOXIDE HCL 10 MG CAPSULE PO ONE (05:00)
== END 2019-02-10 11:23 | disposition home or self-care (01) | DRG 774 ==
LOC: YASAS 10:36 → Y3N 13:24
PROVIDERS: ADMIT Surgery; ATTEND Surgery
PROC: HZ2ZZZZ Detoxification Services for Substance Abuse Treatment (ICD-10-PCS; principal; 2019-02-07)
DX: F10.230 Alcohol dependence with withdrawal, uncomplicated (principal); F14.20 Cocaine dependence, uncomplicated; F17.213 Nicotine dependence, cigarettes, with withdrawal; F31.9 Bipolar disorder, unspecified; F20.0 Paranoid schizophrenia; I10 Essential (primary) hypertension; E11.9 Type 2 diabetes mellitus without complications; K21.9 Gastro-esophageal reflux disease without esophagitis; D69.6 Thrombocytopenia, unspecified; Z86.73 Personal history of transient ischemic attack (TIA), and cerebral infarction without residual deficits; Z87.438 Personal history of other diseases of male genital organs; Z91.14 Patient's other noncompliance with medication regimen; Z79.84 Long term (current) use of oral hypoglycemic drugs
CPT/HCPCS: 36415; 80053; 82962; 85027; 86593; 87389

== ENCOUNTER 2020-03-12 08:10 | Inpatient (IN) | payer OTHER ==
--- NOTE | 2020-03-12 09:02 | BHS.RME ---
Substance Use & Tx History - Substance Use History Alcohol Substance amount: 1 pint of bacardi/6 packs of 24 ozs of beer Substance route: Oral Date of Last Use: 03/12/20 Cocaine-Crack Substance amount: 100$ of crack Frequency of use: More than 3 times per week Substance route: Smoking Date of Last Use: 03/11/20 - Last Treatment Date of last treatment: [facility] to 02/10/19 Where was last treatment: Detox Physical/Psych/Mental Status - Behavior Eye Contact: Normal - Cooperativeness Cooperativeness: Cooperative - Thinking Thought Processes: Logical Thought content: Future oriented - Physical Health Problems Is patient presently having any pain?: No Does patient presently have any injuries (include location): No Does patient currently have a fever: No CIWA Nausea/Vomitin Muscle Tremors: 3 Anxiety: 3 Agitation: 3 Paroxysmal Sweats: 1-Minimal Palms Moist Orientation: 0-Oriented Tacttile Disturbances: 1-Very Mild Itch/Numbness Auditory Disturbances: 0-None Visual Disturbances: 0-None Headache: 2-Mild CIWA-Ar Total Score: 15
--- NOTE | 2020-03-12 09:08 | HP ---
CIWA Score Nausea/Vomitin Muscle Tremors: 3 Anxiety: 3 Agitation: 3 Paroxysmal Sweats: 1-Minimal Palms Moist Orientation: 0-Oriented Tacttile Disturbances: 1-Very Mild Itch/Numbness Auditory Disturbances: 0-None Visual Disturbances: 0-None Headache: 2-Mild CIWA-Ar Total Score: 15 - Admission Criteria OASAS Guidelines: Admission for Medically Managed Detox: Requires at least one of the followin. CIWA greater than 12 2. Seizures within the past 24 hours 3. Delirium tremens within the past 24 hours 4. Hallucinations within the past 24 hours 5. Acute intervention needed for co occurring medical disorder 6. Acute intervention needed for co occurring psychiatric disorder 7. Severe withdrawal that cannot be handled at a lower level of care (continued vomiting, continued diarrhea, abnormal vital signs) requiring intravenous medication and/or fluids 8. Admitting History and Physical - Admission Chief Complaint: i need help to stop drinking alcohol and drug History of Present Illness: this 64 years old male with alcohol dependence and crack abused,seeking detox History Source: Patient Limitations to Obtaining History: No Limitations - Past Medical History RAISED PRINTER: Yes: Syncope Cardiovascular: Yes: HTN, Hyperlipdemia Psych: Yes: Anxiety, Depression, Other (ptsd) Endocrine: Yes: Diabetes Mellitus - Smoking History Smoking history: Current every day smoker Have you smoked in the past 12 months: Yes Aproximately how many cigarettes per day: 10 - Alcohol/Substance Use Hx Alcohol Use: Yes History of Substance Use: reports: Cocaine - Social History Usual Living Arrangement: Yes: Other (residencial area) Do you think of yourself as: Straight/Heterosexual ADL: Support Services Occupation: unemployed History of Recent Travel: No Other Social History: unemployed,no legal issue,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 Admission ROS BHS - HPI Chief Complaint: i need help to stop drinking alcohol and cocaine abused Allergies/Adverse Reactions: Allergies Allergy/AdvReac Type Severity Reaction Status Date / Time No Known Allergies Allergy Verified 03/12/20 09:25 History of Present Illness: this 64 years old male with alcohol dependence and cocaine abused,seeking help to stop, last treatment in this facility form 02/07/19 to 02/10/19 denied seizure syncope alcohol related unemployed,no legal issue history of htn,dm,high cholesterol plan to go back to residential area longest sobriety 2 year history of anxiety,depression and ptsd Exam Limitations: No Limitations - Ebola screening Have you traveled outside of the country in the last 21 days: No Have you had contact with anyone from an Ebola affected area: No Have you been sick,other than usual withdrawal symptoms: No Do you have a fever: No - Review of Systems Constitutional: Loss of Appetite, Malaise, Night Sweats, Changes in sleep, Weakness EENT: reports: Tearing, Nose Congestion Respiratory: reports: No Symptoms reported Cardiac: reports: No Symptoms Reported GI: reports: Nausea, Poor Appetite, Abdominal cramping : reports: No Symptoms Reported Musculoskeletal: reports: Back Pain, Muscle Pain Integumentary: reports: Dryness Neuro: reports: Headache, Tremors Endocrine: reports: No Symptoms Reported Hematology: reports: No Symptoms Reported Psychiatric: reports: No Sypmtoms Reported, Judgement Intact, Mood/Affect Appropiate, Orientated x3, Anxious, Depressed, other (ptsd) Patient History - Patient Medical History Hx Anemia: No Hx Asthma: No Hx Chronic Obstructive Pulmonary Disease (COPD): No Hx Cancer: No Hx Cardiac Disorders: No Hx Congestive Heart Failure: No Hx Hypertension: Yes (on enalapril 10 mgs po daily,and amlodipin 10 mgs po daily) Hx Hypercholesterolemia: Yes (on atovastatin 10 mg hs) Hx Pacemaker: No HX Cerebrovascular Accident: No Hx Seizures: No Hx Dementia: No Hx Diabetes: Yes (Type II dm on metformin 500 mgs po bid) Hx Gastrointestinal Disorders: No Hx Liver Disease: No Hx Genitourinary Disorders: No Hx Sexually Transmitted Disorders: Yes (hx of gonnorhea at age 20 yrs) Hx Renal Disease (ESRD): No Hx Thyroid Disease: No Hx Human Immunodeficiency Virus (HIV): No (negative 01/29 negagive) Hx Hepatitis C: No Hx Depression: Yes (not on meds) Hx Suicide Attempt: No Hx Bipolar Disorder: Yes (not on meds) Hx Schizophrenia: No Other Medical History: no suicodal,no homicidal - Patient Surgical History Past Surgical History: Yes Hx Neurologic Surgery: No Hx Cataract Extraction: No Hx Cardiac Surgery: No Hx Lung Surgery: No Hx Breast Surgery: No Hx Breast Biopsy: No Hx Abdominal Surgery: No Hx Appendectomy: No Hx Cholecystectomy: No Hx Genitourinary Surgery: No Hx Section: No Hx Orthopedic Surgery: No Other Surgical History: R wrist tendon repair in 1979 Anesthesia Reaction: No - PPD History Previous Implant?: Yes Documented Results: Negative w/o proof Implanted On Prior R Admission?: Yes Date: 07/22/16 Results: 0 mm PPD to be Administered?: Yes - Smoking Cessation Smoking history: Current every day smoker Have you smoked in the past 12 months: Yes Aproximately how many cigarettes per day: 10 Hx Chewing Tobacco Use: No Initiated information on smoking cessation: Yes 'Breaking Loose' booklet given: 03/12/20 - Substance & Tx. History Hx Alcohol Use: Yes Hx Substance Use: Yes Substance Use Type: Alcohol, Cocaine Hx Substance Use Treatment: Yes ([facility] 02/07/19 to 02/10/19) - Substances abused Alcohol Substance route: Oral Frequency: Daily Amount used: 1 pint of bacardi/6 packs of 24 ozs of beer Age of first use: 18 Date of last use: 03/12/20 Crack Substance route: Smoking Frequency: 3-6 times per week Amount used: 100$ Age of first use: 23 Date of last use: 03/11/20 Admission Physical Exam S - Vital Signs Vital Signs: t 96.7,p72,r18,bp 112/70,pullse ox 98% - Physical General Appearance: Yes: Moderate Distress, Tremorous, Irritable, Sweating, Anxious HEENTM: Yes: Normal ENT Inspection, ARCHANA, Pharynx Normal Respiratory: Yes: Lungs Clear, Normal Breath Sounds, No Respiratory Distress Neck: Yes: Within Normal Limits, Supple, Trachea in good position Breast: Yes: Within Normal Limits Cardiology: Yes: Within Normal Limits, Regular Rhythm, Regular Rate, S1, S2 Abdominal: Yes: Within Normal Limits, Normal Bowel Sounds, Non Tender, Flat, Soft Genitourinary: Yes: Within Normal Limits Back: Yes: Within Normal Limits Musculoskeletal: Yes: Back pain, Muscle Pain Extremities: Yes: Tremors, Other (scar of right forearm) Neurological: Yes: Within Normal Limits, production cell leader II-XII NML intact, Alert, Motor Strength 5/5 Integumentary: Yes: Dry Lymphatic: Yes: Within Normal Limits - Diagnostic (1) Alcohol dependence with uncomplicated withdrawal Current Visit: No Status: Acute (2) Syncope Current Visit: Yes Status: Acute (3) Nicotine dependence Current Visit: No Status: Acute Qualifiers: Nicotine product type: cigarettes Substance use status: in withdrawal Qualified Code(s): F17.213 - Nicotine dependence, cigarettes, with withdrawal (4) Bipolar disorder Current Visit: No Status: Chronic (5) DM2 (diabetes mellitus, type 2) Current Visit: No Status: Chronic Qualifiers: Diabetes mellitus supervisor long goods insulin use: without supervisor long goods use Diabetes mellitus complication detail: with other oral complications (6) HTN (hypertension) Current Visit: No Status: Chronic Qualifiers: Hypertension type: unspecified Qualified Code(s): I10 - Essential (primary) hypertension (7) Cocaine dependence Current Visit: Yes Status: Acute Cleared for Admission S - Detox or Rehab [facility] Level of Care: Medically Managed Detox Regimen/Protocol: Librium Breathalyzer - Breathalyzer Breathalyzer: 0.008 Urine Drug Screen - Test Device Lot number: [id number] Expiration date: 11/10/20 - Control Is test valid?: Yes - Results Drug screen NEGATIVE: No Urine drug screen results: LEONOR-Cocaine, BZO-Benzodiazepines Inpatient Rehab Admission - Rehab Decision to Admit Inpatient rehab admission?: No
[2020-03-12] MEDS ORDERED: MAGNESIUM CITRATE 300 ML BOTTLE PO PRN (09:28)
[2020-03-12] MEDS ORDERED: ACETAMINOPHEN 325 MG TABLET (FP) PO PRN ×2 (09:28)
[2020-03-12] MEDS ORDERED: MAG HYDROX/AL HYDROX/SIMETH 30 ML UNIT-DOSE CUP PO PRN (09:28)
[2020-03-12] MEDS ORDERED: chlordiazePOXIDE HCL 25 MG CAPSULE PO PRN (09:28)
[2020-03-12] MEDS ORDERED: BISMUTH SUBSALICYLATE 524 MG/30 ML UD PO PRN (09:28)
[2020-03-12] MEDS ORDERED: METHOCARBAMOL 500 MG TABLET PO PRN (09:28)
[2020-03-12] MEDS ORDERED: IBUPROFEN 400 MG TABLET (FP) PO PRN (09:28)
[2020-03-12] MEDS ORDERED: MAGNESIUM HYDROX 2400MG/30ML ORAL SUSPENSION 30 ML CUP PO PRN (09:28)
[2020-03-12] MEDS ORDERED: NICOTINE POLACRILEX 2 MG GUM BUC PRN (09:28)
[2020-03-12] MEDS ORDERED: MENTHOL/PHENOL 1 EACH UD MM PRN (09:28)
[2020-03-12 09:51] VITALS: BMI 25.7
[2020-03-12] MEDS ORDERED: hydrOXYzine PAMOATE 25 MG CAPSULE (FP) PO SCH (10:00)
[2020-03-12] MEDS ORDERED: ONDANSETRON *ODT* 4 MG TABLET SL ONE (10:15)
[2020-03-12] MEDS ORDERED: hydrOXYzine PAMOATE 25 MG CAPSULE (FP) PO PRN (10:34)
[2020-03-12] MEDS: PRENATAL VITAMINS W/ FOLIC ACID TABLET (FP) PO SCH (11:54)
[2020-03-12] MEDS: chlordiazePOXIDE HCL 25 MG CAPSULE PO SCH ×3 (11:54→22:06)
[2020-03-12] MEDS: NICOTINE 21 MG/24 HOURS TOPICAL PATCH TD SCH (12:00)
[2020-03-12] MEDS: metFORMIN HCL 500 MG TABLET (FP) PO SCH (16:54)
[2020-03-12] MEDS: ATORVASTATIN CA 40 MG TABLET (FP) PO SCH (22:06)
[2020-03-12] MEDS: THIAMINE HCL 100 MG TABLET (FP) PO SCH (22:06)
[2020-03-12] MEDS: MELATONIN 5 MG TABLETS PO SCH (22:08)
[2020-03-13] MEDS: chlordiazePOXIDE HCL 25 MG CAPSULE PO SCH ×4 (05:48→22:21)
[2020-03-13] MEDS: metFORMIN HCL 500 MG TABLET (FP) PO SCH ×2 (08:22→17:48)
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
[2020-03-13] MEDS: ASPIRIN 81 MG CHEWABLE TABLETS PO SCH (10:21)
[2020-03-13] MEDS: PRENATAL VITAMINS W/ FOLIC ACID TABLET (FP) PO SCH (10:21)
[2020-03-13] MEDS: amLODIPine BESYLATE 10 MG TABLET (FP) PO SCH (10:21)
[2020-03-13] MEDS: ENALAPRIL MALEATE 10 MG TABLET (FP) PO SCH (10:21)
[2020-03-13] MEDS: NICOTINE 21 MG/24 HOURS TOPICAL PATCH TD SCH (10:22)
[2020-03-13] MEDS: HALOPERIDOL 5 MG TABLET PO SCH (12:01)
[2020-03-13] MEDS: BENZTROPINE MESYLATE 1 MG TABLET PO SCH (12:01)
[2020-03-13 12:54] LABS: HEMATOCRIT 36.3 % (35.4-49); HEMOGLOBIN 12.2 GM/dL (11.7-16.9); MCH 32.6 pg (25.7-33.7); MCHC 33.6 g/dl (32.0-35.9); MEAN CELL VOLUME 96.8 fl (80-96); MEAN PLT VOLUME 10.2 fl (7.5-11.1); PLATELET COUNT 151 K/MM3 (134-434); RBC 3.75 M/mm3 (4.00-5.60); RDW 12.3 % (11.9-15.9); WHITE BLOOD COUNT 7.1 K/mm3 (4.0-10.0)
--- NOTE | 2020-03-13 12:54 | PN ---
[facility] CIWA - CIWA Score Nausea/Vomitin Muscle Tremors: 3 Anxiety: 3 Agitation: 2 Paroxysmal Sweats: No Perspiration Orientation: 0-Oriented Tacttile Disturbances: 1-Very Mild Itch/Numbness Auditory Disturbances: 0-None Visual Disturbances: 0-None Headache: 2-Mild CIWA-Ar Total Score: 13 BHS Progress Note (SOAP) Subjective: alert,irritable,anxious,interrupted sleep,tremor,nausea,aching pain Objective: 03/13/20 12:50 Vital Signs Temperature 97.1 F L 03/13/20 08:50 Pulse Rate 89 03/13/20 08:50 Respiratory Rate 19 03/13/20 08:50 Blood Pressure 124/69 03/13/20 08:50 O2 Sat by Pulse Oximetry (%) 97 03/13/20 08:50 Laboratory Last Values POC Glucometer 102 UNITS (80-120) 03/13/20 05:44 COVID-19 ([facility]) Not detected (Not Detected) 03/12/20 Unknown Assessment: 03/13/20 12:52 labs pending 03/13/20 12:53 withdrawal symptom Plan: continue detox detox librium regimen,bgm monitoring
[2020-03-13 13:08] LABS: ALBUMIN 3.2 g/dl (3.4-5.0); BILIRUBIN,TOTAL 0.4 mg/dL (0.2-1); POTASSIUM 3.9 mmol/L (3.5-5.1)
[2020-03-13] MEDS: ATORVASTATIN CA 40 MG TABLET (FP) PO SCH (22:21)
[2020-03-13] MEDS: MIRTAZAPINE 15 MG TABLET (FP) PO SCH (22:21)
[2020-03-13] MEDS: THIAMINE HCL 100 MG TABLET (FP) PO SCH (22:21)
[2020-03-13] MEDS: MELATONIN 5 MG TABLETS PO SCH (22:23)
[2020-03-14] MEDS: chlordiazePOXIDE HCL 25 MG CAPSULE PO SCH ×4 (05:16→22:25)
[2020-03-14] MEDS: metFORMIN HCL 500 MG TABLET (FP) PO SCH ×2 (07:31→17:45)
--- NOTE | 2020-03-14 09:11 | PN ---
[facility] CIWA - CIWA Score Nausea/Vomitin-Mild Nausea/No Vomiting Muscle Tremors: 2 Anxiety: 2 Agitation: 2 Paroxysmal Sweats: No Perspiration Orientation: 0-Oriented Tacttile Disturbances: 1-Very Mild Itch/Numbness Auditory Disturbances: 0-None Visual Disturbances: 0-None Headache: 2-Mild CIWA-Ar Total Score: 10 S Progress Note (SOAP) Subjective: alert,irritable,anxious,interrupted sleep,aching pain,nausea Objective: 03/14/20 09:09 Vital Signs Temperature 96.6 F L 03/14/20 06:13 Pulse Rate 74 03/14/20 06:13 Respiratory Rate 18 03/14/20 06:13 Blood Pressure 121/66 03/14/20 06:13 O2 Sat by Pulse Oximetry (%) 100 03/14/20 06:13 Laboratory Last Values WBC 7.1 K/mm3 (4.0-10.0) 03/13/20 07:55 RBC 3.75 M/mm3 (4.00-5.60) L 03/13/20 07:55 Hgb 12.2 GM/dL (11.7-16.9) 03/13/20 07:55 Hct 36.3 % (35.4-49) 03/13/20 07:55 MCV 96.8 fl (80-96) H 03/13/20 07:55 MCH 32.6 pg (25.7-33.7) 03/13/20 07:55 MCHC 33.6 g/dl (32.0-35.9) 03/13/20 07:55 RDW 12.3 % (11.9-15.9) 03/13/20 07:55 Plt Count 151 K/MM3 (134-434) D 03/13/20 07:55 MPV 10.2 fl (7.5-11.1) 03/13/20 07:55 Sodium 139 mmol/L (136-145) 03/13/20 07:55 Potassium 3.9 mmol/L (3.5-5.1) 03/13/20 07:55 Chloride 104 mmol/L (98-107) 03/13/20 07:55 Carbon Dioxide 28 mmol/L (21-32) 03/13/20 07:55 Anion Gap 6 MMOL/L (8-16) L 03/13/20 07:55 BUN 18.0 mg/dL (7-18) 03/13/20 07:55 Creatinine 1.0 mg/dL (0.55-1.3) 03/13/20 07:55 Est GFR (CKD-EPI)AfAm 93.08 03/13/20 07:55 Est GFR (CKD-EPI)NonAf 80.31 03/13/20 07:55 POC Glucometer 108 UNITS (80-120) 03/14/20 05:15 Random Glucose 93 mg/dL (74-106) 03/13/20 07:55 Calcium 9.0 mg/dL (8.5-10.1) 03/13/20 07:55 Total Bilirubin 0.4 mg/dL (0.2-1) 03/13/20 07:55 AST 46 U/L (15-37) H 03/13/20 07:55 ALT 39 U/L (13-61) 03/13/20 07:55 Alkaline Phosphatase 67 U/L (45-117) 03/13/20 07:55 Total Protein 6.0 g/dl (6.4-8.2) L 03/13/20 07:55 Albumin 3.2 g/dl (3.4-5.0) L 03/13/20 07:55 Triglycerides 61 mg/dL (0-150) 03/13/20 07:55 Cholesterol 97 mg/dL (50-200) 03/13/20 07:55 Total LDL Cholesterol 42 mg/dL (5-100) 03/13/20 07:55 HDL Cholesterol 47 mg/dL (40-60) 03/13/20 07:55 Syphilis Serology Non-reactive (NONREACTIVE) 03/13/20 07:55 COVID-19 ([facility]) Not detected (Not Detected) 03/12/20 Unknown HIV Ag/Ab Combo Qual Negative (NEGATIVE) 03/13/20 07:55 Assessment: 03/14/20 09:10 withdrawal symptom Plan: continue detox librium regimen,bgm monitoring
[2020-03-14] MEDS: BENZTROPINE MESYLATE 1 MG TABLET PO SCH (10:32)
[2020-03-14] MEDS: ASPIRIN 81 MG CHEWABLE TABLETS PO SCH (10:33)
[2020-03-14] MEDS: ENALAPRIL MALEATE 10 MG TABLET (FP) PO SCH (10:33)
[2020-03-14] MEDS: HALOPERIDOL 5 MG TABLET PO SCH (10:33)
[2020-03-14] MEDS: PRENATAL VITAMINS W/ FOLIC ACID TABLET (FP) PO SCH (10:34)
[2020-03-14] MEDS: NICOTINE 21 MG/24 HOURS TOPICAL PATCH TD SCH (10:34)
[2020-03-14] MEDS: amLODIPine BESYLATE 10 MG TABLET (FP) PO SCH (10:37)
[2020-03-14 16:12] LABS: PH,URINE 6.5 (5.0-8.0); URINE APPEARANCE CLEAR; URINE BILIRUBIN NEGATIVE (NEGATIVE); URINE COLOR YELLOW; URINE GLUCOSE (UA) NEGATIVE (NEGATIVE); URINE KETONE NEGATIVE (NEGATIVE); URINE LEUK ESTERASE NEGATIVE (NEGATIVE); URINE NITRITE NEGATIVE (NEGATIVE); URINE PROTEIN NEGATIVE (NEGATIVE); URINE UROBILINOGEN 0.2 mg/dL (0.2-1.0)
[2020-03-14] MEDS: MIRTAZAPINE 15 MG TABLET (FP) PO SCH (22:25)
[2020-03-14] MEDS: THIAMINE HCL 100 MG TABLET (FP) PO SCH (22:25)
[2020-03-14] MEDS: MELATONIN 5 MG TABLETS PO SCH (22:25)
[2020-03-14] MEDS: ATORVASTATIN CA 40 MG TABLET (FP) PO SCH (22:25)
[2020-03-15] MEDS ORDERED: chlordiazePOXIDE HCL 10 MG CAPSULE PO PRN
[2020-03-15] MEDS: chlordiazePOXIDE HCL 10 MG CAPSULE PO SCH ×4 (05:45→22:32)
[2020-03-15] MEDS: metFORMIN HCL 500 MG TABLET (FP) PO SCH ×2 (07:20→17:41)
[2020-03-15] MEDS: amLODIPine BESYLATE 10 MG TABLET (FP) PO SCH (10:01)
[2020-03-15] MEDS: PRENATAL VITAMINS W/ FOLIC ACID TABLET (FP) PO SCH (10:01)
[2020-03-15] MEDS: BENZTROPINE MESYLATE 1 MG TABLET PO SCH (10:01)
[2020-03-15] MEDS: NICOTINE 21 MG/24 HOURS TOPICAL PATCH TD SCH (10:01)
[2020-03-15] MEDS: ENALAPRIL MALEATE 10 MG TABLET (FP) PO SCH (10:01)
[2020-03-15] MEDS: ASPIRIN 81 MG CHEWABLE TABLETS PO SCH (10:01)
--- NOTE | 2020-03-15 10:23 | PN ---
[facility] CIWA - CIWA Score Nausea/Vomitin-Mild Nausea/No Vomiting Muscle Tremors: 2 Anxiety: 2 Agitation: 2 Paroxysmal Sweats: No Perspiration Orientation: 0-Oriented Tacttile Disturbances: 1-Very Mild Itch/Numbness Auditory Disturbances: 0-None Visual Disturbances: 0-None Headache: 1-Very Mild CIWA-Ar Total Score: 9 BHS Progress Note (SOAP) Subjective: alert,irritable,anxious,interrupted sleep,aching pain Objective: 03/15/20 10:20 Vital Signs Temperature 97.5 F L 03/15/20 09:00 Pulse Rate 114 H 03/15/20 09:00 Respiratory Rate 18 03/15/20 09:00 Blood Pressure 162/92 03/15/20 09:00 O2 Sat by Pulse Oximetry (%) 98 03/15/20 09:00 03/15/20 10:21 bgm 167 Assessment: 03/15/20 10:21 withdrawal symptom Plan: continue detox librium regimen,bgm monitoring with metfomin 500 mgs po bidac
[2020-03-15] MEDS: HALOPERIDOL 5 MG TABLET PO SCH (11:59)
--- NOTE | 2020-03-15 13:22 | PN ---
[facility] Progress Note Note: withdrawal symptom Vital Signs Temperature 97.8 F 03/15/20 12:49 Pulse Rate 114 H 03/15/20 12:49 Respiratory Rate 17 03/15/20 12:49 Blood Pressure 156/84 03/15/20 12:49 O2 Sat by Pulse Oximetry (%) 98 03/15/20 12:49 clonidine 0.1 mg po now librium 25 mgs prn vistaril 25 mgs po close monitoring
[2020-03-15] MEDS ORDERED: cloNIDine HCL 0.1 MG TABLET PO ONE (13:45)
[2020-03-15] MEDS ORDERED: NITROFURANTOIN MACROCRYSTAL 50 MG CAPSULE (FP) PO SCH (21:30)
--- NOTE | 2020-03-15 21:59 | PN ---
S Progress Note Note: C/o urinary incontinence, burning w/ urination and bladder pain which began earlier today. No hematuria noted. Laboratory Last Values WBC 7.1 K/mm3 (4.0-10.0) 03/13/20 07:55 RBC 3.75 M/mm3 (4.00-5.60) L 03/13/20 07:55 Hgb 12.2 GM/dL (11.7-16.9) 03/13/20 07:55 Hct 36.3 % (35.4-49) 03/13/20 07:55 MCV 96.8 fl (80-96) H 03/13/20 07:55 MCH 32.6 pg (25.7-33.7) 03/13/20 07:55 MCHC 33.6 g/dl (32.0-35.9) 03/13/20 07:55 RDW 12.3 % (11.9-15.9) 03/13/20 07:55 Plt Count 151 K/MM3 (134-434) D 03/13/20 07:55 MPV 10.2 fl (7.5-11.1) 03/13/20 07:55 Sodium 139 mmol/L (136-145) 03/13/20 07:55 Potassium 3.9 mmol/L (3.5-5.1) 03/13/20 07:55 Chloride 104 mmol/L (98-107) 03/13/20 07:55 Carbon Dioxide 28 mmol/L (21-32) 03/13/20 07:55 Anion Gap 6 MMOL/L (8-16) L 03/13/20 07:55 BUN 18.0 mg/dL (7-18) 03/13/20 07:55 Creatinine 1.0 mg/dL (0.55-1.3) 03/13/20 07:55 Est GFR (CKD-EPI)AfAm 93.08 03/13/20 07:55 Est GFR (CKD-EPI)NonAf 80.31 03/13/20 07:55 POC Glucometer 162 UNITS (80-120) 03/15/20 16:37 Random Glucose 93 mg/dL (74-106) 03/13/20 07:55 Calcium 9.0 mg/dL (8.5-10.1) 03/13/20 07:55 Total Bilirubin 0.4 mg/dL (0.2-1) 03/13/20 07:55 AST 46 U/L (15-37) H 03/13/20 07:55 ALT 39 U/L (13-61) 03/13/20 07:55 Alkaline Phosphatase 67 U/L (45-117) 03/13/20 07:55 Total Protein 6.0 g/dl (6.4-8.2) L 03/13/20 07:55 Albumin 3.2 g/dl (3.4-5.0) L 03/13/20 07:55 Triglycerides 61 mg/dL (0-150) 03/13/20 07:55 Cholesterol 97 mg/dL (50-200) 03/13/20 07:55 Total LDL Cholesterol 42 mg/dL (5-100) 03/13/20 07:55 HDL Cholesterol 47 mg/dL (40-60) 03/13/20 07:55 Urine Color Yellow 03/14/20 10:45 Urine Appearance Clear 03/14/20 10:45 Urine pH 6.5 (5.0-8.0) D 03/14/20 10:45 Ur Specific [place] 1.009 (1.010-1.035) L 03/14/20 10:45 Urine Protein Negative (NEGATIVE) 03/14/20 10:45 Urine Glucose (UA) Negative (NEGATIVE) 03/14/20 10:45 Urine Ketones Negative (NEGATIVE) 03/14/20 10:45 Urine Blood Negative (NEGATIVE) 03/14/20 10:45 Urine Nitrite Negative (NEGATIVE) 03/14/20 10:45 Urine Bilirubin Negative (NEGATIVE) 03/14/20 10:45 Urine Urobilinogen 0.2 mg/dL (0.2-1.0) 03/14/20 10:45 Ur Leukocyte Esterase Negative (NEGATIVE) 03/14/20 10:45 Syphilis Serology Non-reactive (NONREACTIVE) 03/13/20 07:55 COVID-19 ([facility]) Not detected (Not Detected) 03/12/20 Unknown HIV Ag/Ab Combo Qual Negative (NEGATIVE) 03/13/20 07:55 Vital Signs 03/15/20 03/15/20 15:34 16:40 Temperature 97.8 F Pulse Rate 110 H 96 H Respiratory 18 19 Rate Blood Pressure 155/86 140/80 Plan: Urine culture (collected) Macrodantin 100 mg PO ONCE dose until results of culture.
[2020-03-15] MEDS: MIRTAZAPINE 15 MG TABLET (FP) PO SCH (22:32)
[2020-03-15] MEDS: MELATONIN 5 MG TABLETS PO SCH (22:32)
[2020-03-15] MEDS: ATORVASTATIN CA 40 MG TABLET (FP) PO SCH (22:32)
[2020-03-15] MEDS: THIAMINE HCL 100 MG TABLET (FP) PO SCH (22:32)
[2020-03-16] MEDS: metFORMIN HCL 500 MG TABLET (FP) PO SCH ×2 (06:27→18:08)
[2020-03-16] MEDS: chlordiazePOXIDE HCL 10 MG CAPSULE PO SCH ×2 (06:27→18:08)
--- NOTE | 2020-03-16 10:14 | PN ---
S CIWA - CIWA Score Nausea/Vomitin-No Nausea/No Vomiting Muscle Tremors: 2 Anxiety: 1-Mildly Anxious Agitation: 1-Slight > Activity Paroxysmal Sweats: No Perspiration Orientation: 0-Oriented Tacttile Disturbances: 0-None Auditory Disturbances: 0-None Visual Disturbances: 0-None Headache: 0-None Present CIWA-Ar Total Score: 4 [facility] Progress Note (SOAP) Subjective: burning when urinating Objective: 03/16/20 10:09 Vital Signs Temperature 98.6 F 03/16/20 08:31 Pulse Rate 102 H 03/16/20 08:31 Respiratory Rate 19 03/16/20 08:31 Blood Pressure 168/88 03/16/20 08:31 O2 Sat by Pulse Oximetry (%) 97 03/16/20 08:31 Laboratory Tests 03/12/20 03/12/20 03/12/20 10:17 16:40 Unknown WBC RBC Hgb Hct MCV MCH MCHC RDW Plt Count MPV Sodium Potassium Chloride Carbon Dioxide Anion Gap BUN Creatinine Est GFR (CKD-EPI)AfAm Est GFR (CKD-EPI)NonAf POC Glucometer 102 111 Random Glucose Calcium Total Bilirubin AST ALT Alkaline Phosphatase Total Protein Albumin Triglycerides Cholesterol Total LDL Cholesterol HDL Cholesterol Urine Color Urine Appearance Urine pH Ur Specific [place] Urine Protein Urine Glucose (UA) Urine Ketones Urine Blood Urine Nitrite Urine Bilirubin Urine Urobilinogen Ur Leukocyte Esterase Syphilis Serology COVID-19 ([facility]) Not detected HIV Ag/Ab Combo Qual 03/13/20 03/13/20 03/13/20 05:44 07:55 07:55 WBC 7.1 RBC 3.75 L Hgb 12.2 Hct 36.3 MCV 96.8 H MCH 32.6 MCHC 33.6 RDW 12.3 Plt Count 151 D MPV 10.2 Sodium Potassium Chloride Carbon Dioxide Anion Gap BUN Creatinine Est GFR (CKD-EPI)AfAm Est GFR (CKD-EPI)NonAf POC Glucometer 102 Random Glucose Calcium Total Bilirubin AST ALT Alkaline Phosphatase Total Protein Albumin Triglycerides Cholesterol Total LDL Cholesterol HDL Cholesterol Urine Color Urine Appearance Urine pH Ur Specific [place] Urine Protein Urine Glucose (UA) Urine Ketones Urine Blood Urine Nitrite Urine Bilirubin Urine Urobilinogen Ur Leukocyte Esterase Syphilis Serology Non-reactive COVID-19 ([facility]) HIV Ag/Ab Combo Qual 03/13/20 03/13/20 03/13/20 07:55 07:55 16:42 WBC RBC Hgb Hct MCV MCH MCHC RDW Plt Count MPV Sodium 139 Potassium 3.9 Chloride 104 Carbon Dioxide 28 Anion Gap 6 L BUN 18.0 Creatinine 1.0 Est GFR (CKD-EPI)AfAm 93.08 Est GFR (CKD-EPI)NonAf 80.31 POC Glucometer 101 Random Glucose 93 Calcium 9.0 Total Bilirubin 0.4 AST 46 H ALT 39 Alkaline Phosphatase 67 Total Protein 6.0 L Albumin 3.2 L Triglycerides 61 Cholesterol 97 Total LDL Cholesterol 42 HDL Cholesterol 47 Urine Color Urine Appearance Urine pH Ur Specific [place] Urine Protein Urine Glucose (UA) Urine Ketones Urine Blood Urine Nitrite Urine Bilirubin Urine Urobilinogen Ur Leukocyte Esterase Syphilis Serology COVID-19 ([facility]) HIV Ag/Ab Combo Qual Negative 03/14/20 03/14/20 03/14/20 05:15 10:45 16:42 WBC RBC Hgb Hct MCV MCH MCHC RDW Plt Count MPV Sodium Potassium Chloride Carbon Dioxide Anion Gap BUN Creatinine Est GFR (CKD-EPI)AfAm Est GFR (CKD-EPI)NonAf POC Glucometer 108 86 Random Glucose Calcium Total Bilirubin AST ALT Alkaline Phosphatase Total Protein Albumin Triglycerides Cholesterol Total LDL Cholesterol HDL Cholesterol Urine Color Yellow Urine Appearance Clear Urine pH 6.5 D Ur Specific [place] 1.009 L Urine Protein Negative Urine Glucose (UA) Negative Urine Ketones Negative Urine Blood Negative Urine Nitrite Negative Urine Bilirubin Negative Urine Urobilinogen 0.2 Ur Leukocyte Esterase Negative Syphilis Serology COVID-19 ([facility]) HIV Ag/Ab Combo Qual 03/15/20 03/15/20 03/16/20 05:44 16:37 06:26 WBC RBC Hgb Hct MCV MCH MCHC RDW Plt Count MPV Sodium Potassium Chloride Carbon Dioxide Anion Gap BUN Creatinine Est GFR (CKD-EPI)AfAm Est GFR (CKD-EPI)NonAf POC Glucometer 167 162 173 Random Glucose Calcium Total Bilirubin AST ALT Alkaline Phosphatase Total Protein Albumin Triglycerides Cholesterol Total LDL Cholesterol HDL Cholesterol Urine Color Urine Appearance Urine pH Ur Specific [place] Urine Protein Urine Glucose (UA) Urine Ketones Urine Blood Urine Nitrite Urine Bilirubin Urine Urobilinogen Ur Leukocyte Esterase Syphilis Serology COVID-19 ([facility]) HIV Ag/Ab Combo Qual pt received macrobid 100mg x one dose last night because of s/s of pt complaints. u/a with culture pending aaox3 ambulating no acute distress Assessment: 03/16/20 10:10 mild withdrawals Plan: continue detox pending u/a with culture d/c in am
[2020-03-16] MEDS: ASPIRIN 81 MG CHEWABLE TABLETS PO SCH (10:29)
[2020-03-16] MEDS: PRENATAL VITAMINS W/ FOLIC ACID TABLET (FP) PO SCH (10:29)
[2020-03-16] MEDS: NICOTINE 21 MG/24 HOURS TOPICAL PATCH TD SCH (10:29)
[2020-03-16] MEDS: amLODIPine BESYLATE 10 MG TABLET (FP) PO SCH (10:29)
[2020-03-16] MEDS: BENZTROPINE MESYLATE 1 MG TABLET PO SCH (10:29)
[2020-03-16] MEDS: ENALAPRIL MALEATE 10 MG TABLET (FP) PO SCH (10:29)
[2020-03-16] MEDS: HALOPERIDOL 5 MG TABLET PO SCH (10:29)
[2020-03-16] MEDS: cloNIDine HCL 0.1 MG TABLET PO SCH ×2 (11:36→22:13)
[2020-03-16] MEDS: THIAMINE HCL 100 MG TABLET (FP) PO SCH (22:13)
[2020-03-16] MEDS: MELATONIN 5 MG TABLETS PO SCH (22:13)
[2020-03-16] MEDS: ATORVASTATIN CA 40 MG TABLET (FP) PO SCH (22:13)
[2020-03-16] MEDS: MIRTAZAPINE 15 MG TABLET (FP) PO SCH (22:13)
[2020-03-17] MEDS ORDERED: chlordiazePOXIDE HCL 10 MG CAPSULE PO ONE (05:00)
[2020-03-17 06:12] VITALS: BP 155/95; PULSE 89; TEMP 98
[2020-03-17] MEDS: metFORMIN HCL 500 MG TABLET (FP) PO SCH (08:35)
--- NOTE | 2020-03-17 08:48 | PN ---
[facility] Progress Note Note: Patient is scheduled for discharge today. Scripts for 30 days supply of medications(Haldol 5 mg/day, Cogentin 1 mg/day, Remeron 15 mg.) are electronically transmitted to [facility], [facility] [address] [place] [id number]
--- NOTE | 2020-03-17 09:07 | PN ---
S CIWA - CIWA Score Nausea/Vomitin-No Nausea/No Vomiting Muscle Tremors: None Anxiety: 1-Mildly Anxious Agitation: 0-Normal Activity Paroxysmal Sweats: No Perspiration Orientation: 0-Oriented Tacttile Disturbances: 0-None Auditory Disturbances: 0-None Visual Disturbances: 0-None Headache: 0-None Present CIWA-Ar Total Score: 1 BHS Progress Note (SOAP) Subjective: alert,no complaining,urinate normal,no burning or frequency Objective: 03/17/20 09:04 Vital Signs Temperature 98 F 03/17/20 05:32 Pulse Rate 89 03/17/20 05:32 Respiratory Rate 16 03/17/20 05:32 Blood Pressure 155/95 03/17/20 05:32 O2 Sat by Pulse Oximetry (%) 99 03/17/20 05:32 Assessment: 03/17/20 09:05 detox completed,no withdrawal symptom 03/17/20 09:06 urinalysis on 03/14/20 wnl urine fo c/s pending Plan: stable for discharge today,follow up with after care program as arrangement
--- NOTE | 2020-03-17 09:08 | DS ---
[facility] Detox Discharge Summary Admission Date: 03/12/20 Discharge Date: 03/17/20 - History Present History: Alcohol Dependence, Cannabis Dependence Additional Comments: alert,oriented x 3 ambulation on the unit lung clear on auscultation abdomen soft,no distension,no pain,no tenderness no urinary complaint, detox completed,no withdrawal symptom, stable for discharge follow up with after care program as arrangement declined rehab e prescription to patient's pharmacy total time of discharge spending 35 minutes left the unit in stable condition Pertinent Past History: hypertension gerd type 2 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 schizoaffective disorder - Physical Exam Results Vital Signs: Vital Signs Temperature 98 F 03/17/20 05:32 Pulse Rate 89 03/17/20 05:32 Respiratory Rate 16 03/17/20 05:32 Blood Pressure 155/95 03/17/20 05:32 O2 Sat by Pulse Oximetry (%) 99 03/17/20 05:32 Pertinent Admission Physical Exam Findings: withdrawal signs and symptom Laboratory Last Values WBC 7.1 K/mm3 (4.0-10.0) 03/13/20 07:55 RBC 3.75 M/mm3 (4.00-5.60) L 03/13/20 07:55 Hgb 12.2 GM/dL (11.7-16.9) 03/13/20 07:55 Hct 36.3 % (35.4-49) 03/13/20 07:55 MCV 96.8 fl (80-96) H 03/13/20 07:55 MCH 32.6 pg (25.7-33.7) 03/13/20 07:55 MCHC 33.6 g/dl (32.0-35.9) 03/13/20 07:55 RDW 12.3 % (11.9-15.9) 03/13/20 07:55 Plt Count 151 K/MM3 (134-434) D 03/13/20 07:55 MPV 10.2 fl (7.5-11.1) 03/13/20 07:55 Sodium 139 mmol/L (136-145) 03/13/20 07:55 Potassium 3.9 mmol/L (3.5-5.1) 03/13/20 07:55 Chloride 104 mmol/L (98-107) 03/13/20 07:55 Carbon Dioxide 28 mmol/L (21-32) 03/13/20 07:55 Anion Gap 6 MMOL/L (8-16) L 03/13/20 07:55 BUN 18.0 mg/dL (7-18) 03/13/20 07:55 Creatinine 1.0 mg/dL (0.55-1.3) 03/13/20 07:55 Est GFR (CKD-EPI)AfAm 93.08 03/13/20 07:55 Est GFR (CKD-EPI)NonAf 80.31 03/13/20 07:55 POC Glucometer 145 UNITS (80-120) 03/17/20 05:49 Random Glucose 93 mg/dL (74-106) 03/13/20 07:55 Calcium 9.0 mg/dL (8.5-10.1) 03/13/20 07:55 Total Bilirubin 0.4 mg/dL (0.2-1) 03/13/20 07:55 AST 46 U/L (15-37) H 03/13/20 07:55 ALT 39 U/L (13-61) 03/13/20 07:55 Alkaline Phosphatase 67 U/L (45-117) 03/13/20 07:55 Total Protein 6.0 g/dl (6.4-8.2) L 03/13/20 07:55 Albumin 3.2 g/dl (3.4-5.0) L 03/13/20 07:55 Triglycerides 61 mg/dL (0-150) 03/13/20 07:55 Cholesterol 97 mg/dL (50-200) 03/13/20 07:55 Total LDL Cholesterol 42 mg/dL (5-100) 03/13/20 07:55 HDL Cholesterol 47 mg/dL (40-60) 03/13/20 07:55 Urine Color Yellow 03/14/20 10:45 Urine Appearance Clear 03/14/20 10:45 Urine pH 6.5 (5.0-8.0) D 03/14/20 10:45 Ur Specific [place] 1.009 (1.010-1.035) L 03/14/20 10:45 Urine Protein Negative (NEGATIVE) 03/14/20 10:45 Urine Glucose (UA) Negative (NEGATIVE) 03/14/20 10:45 Urine Ketones Negative (NEGATIVE) 03/14/20 10:45 Urine Blood Negative (NEGATIVE) 03/14/20 10:45 Urine Nitrite Negative (NEGATIVE) 03/14/20 10:45 Urine Bilirubin Negative (NEGATIVE) 03/14/20 10:45 Urine Urobilinogen 0.2 mg/dL (0.2-1.0) 03/14/20 10:45 Ur Leukocyte Esterase Negative (NEGATIVE) 03/14/20 10:45 Syphilis Serology Non-reactive (NONREACTIVE) 03/13/20 07:55 COVID-19 ([facility]) Not detected (Not Detected) 03/12/20 Unknown HIV Ag/Ab Combo Qual Negative (NEGATIVE) 03/13/20 07:55 urine for c/s no growth Vital Signs Temperature 98 F 03/17/20 05:32 Pulse Rate 89 03/17/20 05:32 Respiratory Rate 16 03/17/20 05:32 Blood Pressure 155/95 03/17/20 05:32 O2 Sat by Pulse Oximetry (%) 99 03/17/20 05:32 - Treatment Hospital Course: Detox Protocol Followed, Detoxed Safely, Responded well, Discharged Condition Good Patient has Accepted a Rehab Referral to: declined - Medication Discharge Medications: Ambulatory Orders Aspirin [ASA -] 81 mg PO DAILY #30 tab.chew 11/15/13 metFORMIN HCL [Glucophage -] 500 mg PO BID #60 tablet 11/15/13 Amlodipine Besylate 10 mg PO DAILY 03/12/20 Atorvastatin Ca [Lipitor] 40 mg PO HS 03/12/20 Enalapril Maleate [Vasotec -] 10 mg PO DAILY 03/12/20 Benztropine Mesylate [Cogentin -] 1 mg PO DAILY #30 tablet 03/17/20 Haloperidol [Haldol -] 5 mg PO DAILY #30 tablet 03/17/20 Mirtazapine [Remeron -] 15 mg PO HS #30 tablet 03/17/20 - Diagnosis (1) Alcohol dependence with uncomplicated withdrawal Current Visit: No Status: Acute (2) Syncope Current Visit: Yes Status: Acute (3) Nicotine dependence Current Visit: No Status: Chronic Qualifiers: Nicotine product type: cigarettes Substance use status: in withdrawal Qualified Code(s): F17.213 - Nicotine dependence, cigarettes, with withdrawal (4) Bipolar disorder Current Visit: No Status: Chronic (5) DM2 (diabetes mellitus, type 2) Current Visit: No Status: Chronic Qualifiers: Diabetes mellitus senior care insulin use: without senior care use Diabetes mellitus complication detail: with other oral complications (6) HTN (hypertension) Current Visit: No Status: Chronic Qualifiers: Hypertension type: unspecified Qualified Code(s): I10 - Essential (primary) hypertension (7) Cocaine dependence Current Visit: Yes Status: Acute (8) Old cerebrovascular accident (CVA) without late effect Current Visit: Yes Status: Acute (9) HLD (hyperlipidemia) Current Visit: Yes Status: Chronic - AMA Did Patient Leave Against Medical Advice: No
[2020-03-17] MEDS: ASPIRIN 81 MG CHEWABLE TABLETS PO SCH (09:38)
[2020-03-17] MEDS: PRENATAL VITAMINS W/ FOLIC ACID TABLET (FP) PO SCH (09:38)
[2020-03-17] MEDS: cloNIDine HCL 0.1 MG TABLET PO SCH (09:38)
[2020-03-17] MEDS: BENZTROPINE MESYLATE 1 MG TABLET PO SCH (09:38)
[2020-03-17] MEDS: HALOPERIDOL 5 MG TABLET PO SCH (09:38)
[2020-03-17] MEDS: ENALAPRIL MALEATE 10 MG TABLET (FP) PO SCH (09:38)
== END 2020-03-17 10:33 | disposition home or self-care (01) | DRG 774 ==
LOC: YASAS 08:10 → Y6N 09:43
PROVIDERS: ADMIT Allergy & Immunology; ATTEND Allergy & Immunology
PROC: HZ2ZZZZ Detoxification Services for Substance Abuse Treatment (ICD-10-PCS; principal; 2020-03-12)
DX: F10.230 Alcohol dependence with withdrawal, uncomplicated (principal); F14.20 Cocaine dependence, uncomplicated; F17.210 Nicotine dependence, cigarettes, uncomplicated; F19.24 Other psychoactive substance dependence with psychoactive substance-induced mood disorder; F19.282 Other psychoactive substance dependence with psychoactive substance-induced sleep disorder; F31.9 Bipolar disorder, unspecified; F43.10 Post-traumatic stress disorder, unspecified; I10 Essential (primary) hypertension; E78.5 Hyperlipidemia, unspecified; E11.9 Type 2 diabetes mellitus without complications; Z79.84 Long term (current) use of oral hypoglycemic drugs; R30.0 Dysuria; R39.11 Hesitancy of micturition; Z86.73 Personal history of transient ischemic attack (TIA), and cerebral infarction without residual deficits; Z86.19 Personal history of other infectious and parasitic diseases; Z56.0 Unemployment, unspecified; Z59.0 Homelessness
CPT/HCPCS: 36415; 80053; 80061; 81003; 82962; 83721; 85027; 86780; 87086; 87389; J0735; Q0162; U0003

== ENCOUNTER 2024-10-15 18:48 | Inpatient (IN) | payer OTHER ==
[2024-10-15 19:13] VITALS: BMI 29.5
[2024-10-15] MEDS ORDERED: BISMUTH SUBSALICYLATE 524 MG/30 ML PO PRN (19:30)
[2024-10-15] MEDS ORDERED: ONDANSETRON *ODT* 4 MG TABLET SL PRN (19:30)
[2024-10-15] MEDS ORDERED: LOPERAMIDE HCL 2 MG CAPSULE PO PRN (19:30)
[2024-10-15] MEDS ORDERED: guaiFENesin 600 MG TABLET.ER (FP) PO PRN (19:30)
[2024-10-15] MEDS ORDERED: IBUPROFEN 400 MG TABLET (FP) PO PRN (19:30)
[2024-10-15] MEDS ORDERED: POLYETHYLENE GLYCOL (HEALTHYLAX) 3350 17 GM PACKET PO PRN (19:30)
[2024-10-15] MEDS ORDERED: BENZOCAINE/MENTHOL (CHLORASEPTIC ) LOZENGE MM PRN (19:30)
[2024-10-15] MEDS ORDERED: MAGNESIUM HYDROX 2400MG/30ML ORAL SUSPENSION 30 ML CUP PO PRN (19:30)
[2024-10-15] MEDS ORDERED: IBUPROFEN 600 MG TABLET (FP) PO PRN (19:30)
[2024-10-15] MEDS ORDERED: BENZONATATE 200 MG CAPSULE PO PRN (19:30)
[2024-10-15] MEDS ORDERED: NICOTINE POLACRILEX 2 MG GUM BUC PRN (19:30)
[2024-10-15] MEDS ORDERED: ACETAMINOPHEN 325 MG TABLET (FP) PO PRN (19:30)
[2024-10-15] MEDS ORDERED: NICOTINE POLACRILEX 2 MG LOZENGE BC PRN (19:30)
[2024-10-15] MEDS ORDERED: NALOXONE (NARCAN) HCL 4 MG/0.1 ML SPRAY NS PRN (19:30)
[2024-10-15] MEDS: THIAMINE 100 MG TABLET PO SCH (21:13)
[2024-10-15] MEDS: MELATONIN 5 MG TABLETS PO SCH (21:13)
[2024-10-15] MEDS: MAG HYDROX/AL HYDROX/SIMETH 30 ML UNIT-DOSE CUP PO PRN (21:14)
[2024-10-16] MEDS: PRENATAL VITAMINS W/ FOLIC ACID TABLET (FP) PO SCH (10:49)
[2024-10-16 13:26] LABS: HEMATOCRIT 38.7 % (40.1-51.0); HEMOGLOBIN 12.6 g/dL (13.7-17.5); MCHC 32.6 g/dl (32.3-36.5); MEAN CELL VOLUME 99.5 fl (79.0-92.2); MEAN PLT VOLUME 12.2 fl (9.4-12.4); PLATELET COUNT 144 x10^3/uL (163-337); RDW 11.9 % (12.2-16.4)
[2024-10-16 13:39] LABS: CHLORIDE 103 mmol/L (98-107); SODIUM 139 mmol/L (136-145)
[2024-10-16 13:42] LABS: ANION GAP 6 mmol/L (4-13); BLOOD UREA NITROGEN 19.1 mg/dL (7-18); CO2 30 mmol/L (21-32); GLUCOSE,RANDOM 123 mg/dL (74-106)
[2024-10-16 13:44] LABS: ALBUMIN 3.3 g/dl (3.4-5.0); CALCIUM 9.3 mg/dL (8.5-10.1)
[2024-10-16 13:45] LABS: BILIRUBIN,TOTAL 1.3 mg/dL (0.2-1); SGOT/AST 83 U/L (15-37); SGPT/ALT 34 U/L (13-61); TOT PROT 6.4 g/dl (6.4-8.2)
[2024-10-16 13:47] LABS: ALK PHOS 84 U/L (45-117); CREATININE 1.1 mg/dL (0.55-1.3)
[2024-10-19] MEDS ORDERED: TUBERCULIN PPD 5 TU/0.1ML VIAL ID ONE (10:17)
[2024-10-21] MEDS: hydrOXYzine PAMOATE 25 MG CAPSULE (FP) PO PRN (21:10)
[2024-10-22] MEDS: amLODIPine BESYLATE 10 MG TABLET (FP) PO SCH (16:07)
[2024-10-22] MEDS: MIRTAZAPINE 15 MG TABLET (FP) PO SCH (21:38)
[2024-10-23] MEDS: ENALAPRIL MALEATE 10 MG TABLET PO SCH (09:51)
[2024-10-25] MEDS ORDERED: amLODIPine BESYLATE 10 MG TABLET (FP) PO ONE (09:00)
[2024-10-25] MEDS: amLODIPine BESYLATE 10 MG TABLET (FP) PO ONE (10:28)
[2024-10-26] MEDS: amLODIPine BESYLATE 10 MG TABLET (FP) PO SCH (06:23)
[2024-11-05] MEDS: FLUoxetine HCL 10 MG CAPSULE PO SCH (10:23)
[2024-11-08] MEDS ORDERED: amLODIPine BESYLATE 5 MG TABLET (FP) PO ONE (15:16)
[2024-11-09] MEDS: ENALAPRIL MALEATE 10 MG TABLET PO SCH (09:41)
[2024-11-10 06:25] VITALS: RESP 20; TEMP 97.1
[2024-11-10 13:02] VITALS: BP 147/83; PULSE 72
== END 2024-11-10 09:12 | disposition home or self-care (01) | DRG 895 ==
LOC: YASAS 18:48 → Y6N 20:05 → Y3NR 10-17 11:33 → Y3E 10-18 11:57
PROVIDERS: ADMIT Allergy & Immunology; ATTEND Psychiatry & Neurology Pain Medicine
PROC: HZ42ZZZ Group Counseling for Substance Abuse Treatment, Cognitive-Behavioral (ICD-10-PCS; principal; 2024-10-15)
DX: F10.20 Alcohol dependence, uncomplicated (principal); F14.20 Cocaine dependence, uncomplicated; F19.282 Other psychoactive substance dependence with psychoactive substance-induced sleep disorder; Z59.01 Sheltered homelessness; F17.210 Nicotine dependence, cigarettes, uncomplicated; F31.9 Bipolar disorder, unspecified; F19.24 Other psychoactive substance dependence with psychoactive substance-induced mood disorder; F43.10 Post-traumatic stress disorder, unspecified; F41.9 Anxiety disorder, unspecified; E78.5 Hyperlipidemia, unspecified; I10 Essential (primary) hypertension; E11.9 Type 2 diabetes mellitus without complications; K21.9 Gastro-esophageal reflux disease without esophagitis; Z86.73 Personal history of transient ischemic attack (TIA), and cerebral infarction without residual deficits
CPT/HCPCS: 36415; 80053; 80305; 80307; 82962; 85027; 86780; 87811; 93005; 93010